=== PATIENT | female | born 2000 | race Two or more races ===

== ENCOUNTER 2020-09-05 11:30 | Outpatient (REF) | payer OTHER, SELFPAY ==
[2020-09-05 12:07] LABS: COVID-19 Test Negative (Negative)
== END 2020-09-05 11:31 | disposition home or self-care (01) ==
LOC: HO.LAB 11:30
PROVIDERS: Visit Provider Physician Assistant Medical
DX: Z20.822 Contact with and (suspected) exposure to COVID-19 (principal)
CPT/HCPCS: 36415; 87635

== ENCOUNTER 2020-09-18 14:57 | Outpatient (REF) | payer MEDICAID, SELFPAY | END 2020-09-18 14:58 | disposition home or self-care (01) | LOC: HO.LAB 14:57 | PROVIDERS: Visit Provider Nurse Practitioner Family | DX: R05 Cough (principal); Z20.822 Contact with and (suspected) exposure to COVID-19 | CPT/HCPCS: U0003; U0005 ==

== ENCOUNTER 2021-10-11 21:49 | Emergency (ER) | payer OTHER, MEDICAID, SELFPAY ==
[2021-10-11 22:09] VITALS: BP 124/71; PULSE 82; RESP 16; TEMP 36.6; O2SAT 96
[2021-10-11 22:26] VITALS: BP 124/71; PULSE 82; RESP 16; TEMP 36.6; O2SAT 96; BMI 31.3
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
[2021-10-12 01:16] VITALS: BP 130/67; PULSE 73; RESP 18; TEMP 36.3; O2SAT 100
[2021-10-12] MEDS: Ibuprofen 600 MG TABLET PO (01:23)
== END 2021-10-12 01:35 | disposition home or self-care (01) ==
PROVIDERS: Emergency Provider Emergency Medicine
DX: S13.4XXA Sprain of ligaments of cervical spine, initial encounter (principal); V43.62XA Car passenger injured in collision with other type car in traffic accident, initial encounter; Y93.89 Activity, other specified; Y92.414 Local residential or business street as the place of occurrence of the external cause; Y99.9 Unspecified external cause status
CPT/HCPCS: 99283

== ENCOUNTER 2022-04-02 12:12 | Outpatient (REF) | payer OTHER, MEDICAID, SELFPAY ==
[2022-04-04 16:02] LABS: TS Negative Control Passed; TS Panel A 0; TS Panel B 1; TS Positive Control Passed; TSpotTB Negative (Negative)
== END 2022-04-02 12:13 | disposition home or self-care (01) ==
LOC: HO.LAB 12:12
PROVIDERS: PCP Family Medicine; Visit Provider Family Medicine
DX: Z11.1 Encounter for screening for respiratory tuberculosis (principal)
CPT/HCPCS: 36415; 86481

== ENCOUNTER 2024-06-21 14:47 | Outpatient (REF) | payer OTHER, MEDICAID, SELFPAY ==
--- OUTSIDE RECORDS SUMMARY | 2024-06-21 15:54 | XMS_ITS ---
Author Organization [facility] Address [address] [id number] Care Team Providers Care Dairy Management Specialist Name Role Phone Preston Engel Unavailable [phone] Allergies No Known Allergies REASON FOR VISIT pill check Medications Medication SIG (Take, Route, Frequency, Duration) Notes Start Date End Date Status Macrobid 100 MG 1 capsule Orally Twice a day for 7 days Rx dispensed # 14 caps in -house 03/20/2021 Not-Taking metroNIDAZOLE 500 MG 1 tablet Orally Twice a day, every 12 hours for 7 days Rx from [facility] to start on 03/04/2023 03/04/2023 Not-Taking Diflucan 150 MG 1 tablet Orally 1 tab po stat ,rept x 3 days for 3 days Rx from [facility] to start on 03/04/2023 03/04/2023 Not-Taking Junel FE 03/06 1-20 MG-MCG 1 tablet Orally Once a day for 365 days please fill 1 year supply per [place] access act thank you! Active Social History Sex Assigned At : Social History Observation Description Sex Assigned At Female Vital Signs Blood pressure systolic 105 mm Hg 08/24/19 24 Blood pressure diastolic 70 mm Hg 024 Height 61 in 08/24/2023 Weight 186 lbs 08/24/2023 BMI 35.14 kg/m2 08/24/2023 Encounters Encounter Location Date Provider Diagnosis [facility] [address] [place], [place] [id number] 08/24/2023 Preston Engel Encounter for surveillance of contraceptives, unspecified Z30.40 Assessments Encounter Date Diagnosis (ICD Code) Assessment Notes Treatment Notes Treatment Clinical Notes Section Notes 08/24/2023 Encounter for surveillance of contraceptives, unspecified (ICD-10 - Z30.40) Reviewed med education and what to do with missed pills Date of next annual: has been doing at [facility] previously, plans to schedule next annual at [facility] 08/24/2023 Other Plan Of Treatment Medication Medication Name Sig Start Date Stop Date Notes 03/06 1-20 MG-MCG 1 tablet Orally Once a day for 365 days please fill 1 year supply per [place] access act thank you! Treatment Notes Assessment Notes Encounter for surveillance o f contraceptives, unspecified Reviewed med education and what to do with missed pills Date of next annual: has been doing at [facility] previously, plans to schedule next annual at [facility] Next Appt Details Follow Up: , Reason: for janell ua Progress Notes * Tish ALFARODOB: [birth year] (23 yo F)Acc No.[id number]:08/24/2023 Progress Notes Patient:?Tish ALFARO Provider:?Preston Engel CNM, FNP :2000???Age:23 Y???Sex:Female D ate:08/24/2023 Address:[address] [place] [address] Shubham López, [facility] Subjective: * Chief Complaints: * ???Pill check * HPI: ???Visit Narrative:?Reason for the visit:?OCP check.?Current form of control:?.?LMP:?some spotting on 08/14/2023.?Last date of UPI:?08/20/2023.?Other Notes for the Clinician:?Client presents for OCP check. Client notes they missed last 4 days of last pack (inactive pills, lost at dance constitution party), 08/08-08/11 and started again on day 1 of new pack 08/13/2023. otherwise always 100% adherance, no side effects, happy with method, would like to review what to do with missed pills.? * ROS:?General/Constitutional:?Denies?Headache.?Denies?Weight gain.?Denies?Weight loss.?Ophthalmologic:?Visual changes?denies.?Denies?Blurred vision.?Respiratory:?Denies?Breathing problems.?Denies?Chest pain.?Cardiovascular:?Denies?Fluid accumulation in the legs.?Gastrointestinal:?Denies?Abdominal pain.?Denies?Nausea.?Denies?Vomiting.?Vaginal/Breast/ Control FU:?Denies?Irregular menses.?Denies?Missed period(s).?Denies?Vaginal bleeding between periods.?Denies?Vaginal discharge/itching.?Musculoskeletal:?arm pain?denies.?Peripheral Vascular:?Denies?Painful extremities.?Psychiatric:?Denies?Depressed mood.? * Medical History:? * Procurement Internship History:? control:?oral contraceptive pill.?Last menstrual period:?08/10/2023.?Last pap smear date:?approx 2 years ago at [facility], NIL; 09/2019,at another provider's ,client reports as NIL.?Menarche: ?Age of menarche?8 ???Periods:?every 28 days , scant blood loss,on oc Rx.?Sexual activity:?currently sexually active.?Sexually Transmitted Diseases (STDs):?Gonorrhea,tx'd and negative testing since ,rept aptima sent on 07/18/2018 and 01/04/2019 at ,both negative results.?Unprotected sex in the past 10 days?:?no.? * OB History:?Total pregnancies:?2.?(s):?1.?Miscarriage(s):?1.? * Surgical History:?Denies Pas t Surgical History * Hospitalization/Major Diagno stic Procedure:?Denies Past Hospitalization * Family History:? Grandfather maternal- liver cancer. * Social History:?Food Access:?Food Access?The Client's current access to food is?Secure Food Access ???Housing:?Housing?The client's current living situation is:?stable housing ???Reproductive Life Plan:?Reproductive Life Plan?Do you want to have children??Yes, I want to have children ?How long would you like to wait until you/your partner becomes ??1 - 5 years ?How sure are you that you will be able to use your control method without any problems??Very sure ???Sexual History:?Sexual History?Sexual History Reviewed:?Partners, Practices, Protection/Past STIs, Prevention of ?Currently sexually active??Yes x 6 years, unsure ?Sexually active with:?Men ?Number of male partners?1 ?Your sexual activities include:?oral intercourse, vaginal intercourse ?Reviewed types of EC??Yes ?Have you/your partner(s) ever used EC??Yes ?Offered client EC??No ?Do you use condoms??No ?Date of last unprotected intercourse:?08/20/2023 ?Number of partners in past 3 months:?1 ?Number of partners in past year:?1 ?What is the client's primary method to prevent at the end of their visit??Oral - Combined Hormone Pill ?Does your partner(s) currently have any STIs??No ???HIV Risk Assessment:?Additional Questions?Is an HIV Risk Assessment being conducted??No ???PrEP for HIV:?PrEP for HIV?Is the client interested in beginning/continuing PrEP for HIV??No ???Relationships:?Relationships?Has the client experienced any of the following:?Client has never experienced harmful relationships ???Human Trafficking:?Human Trafficking?Experienced:?No ???Tobacco Use:?Tobacco Use?Do you/have you used tobacco??No ?Tobacco Smoking Status?Never smoker ???Drugs/Alcohol:?Drug/Alcohol Use?Do you or have you used drugs??No ?Do you or have you used alcohol??No ???Counseling Provided:?Counseling Provided?The client was counseled on the following topics at this visit:? Control ?Please indicate the length of time, in minutes, that counseling was provided.?7 ?Counseling Was Provided By:?peter * Medications:?TakingJunel 03/06 1-20 MG-MCG Tablet TAKE 1 TABLET BY MOUTH EVERY DAY FOR 84 DAYS Taking Junel FE 03/06 1-20 MG-MCG Tablet TAKE 1 TABLET BY MOUTH EVERY DAY FOR 84 DAYS Not-Taking/PRNmetroNIDAZOLE 500 MG Tablet 1 tablet Orally Twice a day, every 12 hours , Notes to Pharmacist: Rx from to start on 03/04/2023iflucan 150 MG Tablet 1 tablet Orally 1 tab po stat ,rept x 3 days , Notes to Pharmacist: Rx from to start on 03/04/2023Macrobid 100 MG Capsule 1 capsule Orally Twice a day , Notes to Pharmacist: Rx dispensed # 14 caps in -houseMedication List reviewed and reconciled with the patientNot-Taking/PRN metroNIDAZOLE 500 MG Tablet 1 tablet Orally Twice a day, every 12 hours , Notes to Pharmacist: Rx from [facility] to start on 03/04/2023Not-Taking/PRN Diflucan 150 MG Tablet 1 tablet Orally 1 tab po stat ,rept x 3 days , Notes to Pharmacist: Rx from [facility] to start on 03/04/2023Not-Taking/PRN Macrobid 100 MG Capsule 1 capsule Orally Twice a day , Notes to Pharmacist: Rx dispensed # 14 caps in -houseMedication List reviewed and reconciled with the patient * Allergies:?N.K.D.A.no[Allerg ies Verified] Objective: * Vitals:?BP:105/70mm Hg, Ht: 61 in, Wt:186lbs, BMI:35.14Index, Ht-cm: 154.94, Wt- k.37. * Examination: ???General Examination: ?GENERAL APPEARANCE:?in no acute distress, well developed, well nourished.?NEUROLOGIC:?alert and oriented.? Assessment: * Assessment: 1.?Encounter for surveillanc e of contraceptives, unspecified - Z30.40 (Primary)? Plan: * Treatment: * Procedure Codes:? * Follow Up:?Reason: for annua l * Billing Information: * Visit Code:? 44443 Existing - Low Complexity (IN USE). * Procedure Codes:? * Sign off status: Completed true * Provider:?Preston Engel CNM, THEATRICAL SCENIC DESIGNER Date:?0 08/24/2023 Generated for Tiago shipley/Lucy/Teresa on:?06/21/2024 03:54 PM EDT History and Physical Notes * HPI (History of Present Illness) Category Sub-Category Detail Notes Category Not es Visit Narrative Reason for the visit: OCP check Current form of control: Other Notes for the Clinician: Client pr esents for OCP check. Client notes they missed last 4 days of last pack (inactive pills, lost at dance [employer] party), 08/08-08/11 and started again on day 1 of new pack 08/13/2023. otherwise always 100% adherance, no side effects, happy with method, would like to review what to do with missed pills LMP: some spotting on 07/17 Last date of UPI: 08/20/2023 Examination Category Sub-Category Detail Notes Category Not es General Examination GENERAL APPEARANCE: in no ac monique distress, well developed, well nourished NEUROLOGIC: alert and oriented
--- OUTSIDE RECORDS SUMMARY | 2024-06-21 15:54 | XMS_ITS | Encounter Summary ---
Author Organization [facility] Address [address] [place] [address] Phone Care Team Providers Care Trailer Park Manager Name Role Phone Unavailable Primary Care Provider Unavailabl e Encounter Details Date Type Department Care Team (Late st Contact Info) Description 10/01/2016 Conversion Encounter [facility] - [address] [address] Social History Tobacco Use Types Packs/Day Years Used Date Smoking Tobacco: Never Comments:Never smoker Comments Unknown Sex and Gender Information Value Date Recorded Sex Assigned at Not on file Legal Sex Female 5:12 PM EDT Gender Identity Not on file Sexual Orientation Not on file documented as of this encounter Plan of Treatment Not on file documented as of this encounter Visit Diagnoses Not on filedocumented in this encounter
--- OUTSIDE RECORDS SUMMARY | 2024-06-21 15:54 | XMS_ITS | Encounter Summary ---
Author Organization [facility] Address [address] [place] [id number] Phone Care Team Providers Care Risk Management Internship Name Role Phone Unavailable Primary Care Provider Unavailabl e Encounter Details Date Type Department Care Team (Late st Contact Info) Description 05/10/2015 Documentation [facility] Family Medicine [facility] [place] [address] Family Medicine, Physician [address] [place], [place] [id number] Social History Tobacco Use Types Packs/Day Years Used Date Smoking Tobacco: Never Assessed Comments Unknown Sex and Gender Information Value Date Recorded Sex Assigned at Not on file Legal Sex Female 5:12 PM EDT Gender Identity Not on file Sexual Orientation Not on file documented as of this encounter Plan of Treatment Not on file documented as of this encounter Visit Diagnoses Not on filedocumented in this encounter
--- OUTSIDE RECORDS SUMMARY | 2024-06-21 15:54 | XMS_ITS ---
Author Organization [facility] Address [address] [place] [id number] Care Team Providers Care Flaring Machine Operator Name Role Phone MAE LEONARDO Unavailable [phone] Allergies No Known Allergies Results Component Value Reference Range Notes Wet [facility] Reviewed date:05/22/2024 05:31:19 PM Interpretation:BV Performing Lab: Notes/Report: BV Clue Cells pos WBC few Hyphae neg Trichomonas none pH 5.5 IRMA Prep pos whiff HBsAg Screen-[id number] Reviewed date:05/23/2024 12:23:09 PM Interpretation:Negative Performing Lab:Chris Brooks, [address], [address], [place], Phone - [phone], Director - [facility] Notes/Report: Clinical Information:SRC: VAGINAL HBsAg Screen Negative Negative Hepatitis B Surf Ab Quant-[id number] Reviewed date:05/23/2024 12:23:27 PM Interpretation:Immune Performing Lab:[address], [address], [place], Phone - [phone], Director - [facility] Notes/Report: Clinical Information:SRC: VAGINAL Hepatitis B Surf Ab Quant 21.0 Immunity>10 mIU /mL Status of Immunity Anti-HBs Level Inconsistent with Immunity 0.0 - 10.0 Consistent with Immunity >10.0 T pallidum Screening [place] -[id number] Reviewed date:05/23/2024 12:22:57 PM Interpretation:Negative Performing Lab:[facility] [place], [address], [address], [place], Phone - [phone], Director - [facility] Notes/Report: Clinical Information:SRC: VAGINAL T pallidum Antibodies Non Reactive Non Reactive HIV Ab/p24 Ag with Reflex-[id number] Reviewed date:05/23/2024 12:23:03 PM Interpretation:Negative Performing Lab:[facility] [place], [address], [address], [place], Phone - [phone], Director - [facility] Notes/Report: Clinical Information:SRC: VAGINAL HIV Ab/p24 Ag Screen Non Reactive Non Reactive HIV-1/HIV-2 antibodies and HIV-1 p24 antigen were NOT detected. There is no laboratory evidence of HIV infection. HIV Negative HCV Antibody RFX to Quant PC [id number] Reviewed date:05/23/2024 12:23:15 PM Interpretation:Negative Performing Lab:[facility] [place], [address], [address], [place], Phone - [phone], Director - [facility] Notes/Report: Clinical Information:SRC: VAGINAL Clinical Information:SRC: VAGINAL HCV Ab Non Reactive Non Reactive Interpretation: Not infected with HCV unless early or acute infection is suspected (which may be delayed in an immunocompromised individual), or other evidence exists to indicate HCV infection. Ct, Ng, Trich vag by [id number]-[id number] Reviewed date:05/23/2024 06:20:54 PM Interpretation:Negative Performing Lab:[facility] [place], [address], [address], [place], Phone - [phone], Director - [facility] Notes/Report: Clinical Information:SRC: VAGINAL Chlamydia by SCOT Negative Negative Gonococcus by SCOT Negative Negative Trich vag by SCOT Negative Negative REASON FOR VISIT Infection Screening Medications Medication SIG (Take, Route, Frequency, Duration) Notes Start Date End Date Status metroNIDAZOLE 500 MG 1 tablet Orally Twice a day, every 12 hours for 7 days 05/22/2024 Active Aftera 1.5 MG as directed Orally one for 1 days 05/22/2024 Active 03/06 1-20 MG-MCG 1 tablet Orally Once a day for 365 days please fill 1 year supply per [place] access act thank you! Not-Taking Social History Sex Assigned At : Social History Observation Description Sex Assigned At Female Vital Signs Blood pressure systolic 100 mm Hg 04/07/20 25 Blood pressure diastolic 65 mm Hg 025 Height 61 in 05/22/2024 Weight 173.7 lbs 05/22/2024 BMI 32.82 kg/m2 05/22/2024 Encounters Encounter Location Date Provider Diagnosis [facility] [address] [place] [address] [address] [place], [place] [id number] 05/22/2024 MAE GABAI Encounter for screen ing for infections with a predominantly sexual mode of transmission Z11.3 ; Encounter for other general counseling and advice on contraception Z30.09 ; Acute vaginitis N76.0 ; Encounter for screening for other infectious and parasitic diseases Z11.8 ; Encounter for screening for human immunodeficiency virus [HIV] Z11.4 and Encounter for screening for other viral diseases Z11.59 Assessments Encounter Date Diagnosis (ICD Code) Assessment Notes Treatment Notes Treatment Clinical Notes Section Notes 05/22/2024 Encounter for screening for infections with a predominantly sexual mode of transmission (ICD-10 - Z11.3) Reviewed routine screening, safe sex and consistent barrier protection. Aware of window period for testing and testing options. Discussed symptoms that would warrant further evaluation and follow-up care. Need 2 out of 3 Sections from A-C Section A) Problems (only need one from below) Two or more self-limited or minor programs Section B) Data (at least one of the following categories in this section) Category 1: (Choose 2 of the following): Order unique tests Review test results (each unique test counts as one) Category 2: Assessment requiring an independent historian Section C) Risk Document low risk of morbidity/mor tality 05/22/2024 Encounter for other general counseling and advice on contraception (ICD-10 - Z30.09) Reviewed control options available. Reviewed risk, benefits and side effects of each method. Answered questions and concerns, and used shared decision-making to choose method. Clt agreeable to EC rx for future use. Declines other method at this time Need 2 out of 3 Sections from A-C Section A) Problems (only need one from below) Two or more self-limited or minor programs Section B) Data (at least one of the following categories in this section) Category 1: (Choose 2 of the following): Order unique tests Review test results (each unique test counts as one) Category 2: Assessment requiring an independent historian Section C) Risk Document low risk of morbidity/mor tality 05/22/2024 Acute vaginitis (ICD-10 - N76.0) Reviewed wet mount findings. Discussed bacterial vaginosis diagnosis, treatment and prevention. BV is a clinical condition characterized by a shift in vaginal microbiota away from Lactobacillus species towards more diverse anaerobe bacterial species. Encouraged condom use during treatment regimen. Info given on Boric Acid vaginal suppositories, aware that toxic if taken PO, samples dispensed. RTC if symptoms persist or worsen Reviewed study showing a possible sexual transmission aspect of BV. The study found that treating AMAB partners (partner with a penis) decreased reoccurrence rate from 63% to 35% in the first 3 months after treatment. This is a new study, and we are still learning all the implications of its findings. There is still more to learn regarding BV and proper treatment to avoid recurrent issues. Partner treatment discussed today. Clt declines at this time Need 2 out of 3 Sections from A-C Section A) Problems (only need one from below) Two or more self-limited or minor programs Section B) Data (at least one of the following categories in this section) Category 1: (Choose 2 of the following): Order unique tests Review test results (each unique test counts as one) Category 2: Assessment requiring an independent historian Section C) Risk Document low risk of morbidity/mor tality 05/22/2024 Encounter for screening for other infectious and parasitic diseases (ICD-10 - Z11.8) Need 2 out of 3 Sections from A-C Section A) Problems (only need one from below) Two or more self-limited or minor programs Section B) Data (at least one of the following categories in this section) Category 1: (Choose 2 of the following): Order unique tests Review test results (each unique test counts as one) Category 2: Assessment requiring an independent historian Section C) Risk Document low risk of morbidity/mor tality 05/22/2024 Encounter for screening for human immunodeficiency virus [HIV] (ICD-10 - Z11.4) Need 2 out of 3 Sections from A-C Section A) Problems (only need one from below) Two or more self-limited or minor programs Section B) Data (at least one of the following categories in this section) Category 1: (Choose 2 of the following): Order unique tests Review test results (each unique test counts as one) Category 2: Assessment requiring an independent historian Section C) Risk Document low risk of morbidity/mor tality 05/22/2024 Encounter for screening for other viral diseases (ICD-10 - Z11.59) Need 2 out of 3 Sections from A-C Section A) Problems (only need one from below) Two or more self-limited or minor programs Section B) Data (at least one of the following categories in this section) Category 1: (Choose 2 of the following): Order unique tests Review test results (each unique test counts as one) Category 2: Assessment requiring an independent historian Section C) Risk Document low risk of morbidity/mor tality Plan Of Treatment Medication Medication Name Sig Start Date Stop Date Notes metroNIDAZOLE 500 MG 1 tablet Orally Twi ce a day, every 12 hours for 7 days 05/22/2024 Aftera 1.5 MG as directed Orally one for 1 days 05/22/2024 Treatment Notes Assessment Notes Encounter for screening for infections with a predominantly sexual mode of transmission Reviewed routine screening, safe sex and consistent barrier protection. Aware of window period for testing and testing options. Discussed symptoms that would warrant further evaluation and follow-up care. Encounter for other general counseling and advice on contraception Reviewed control options available . Reviewed risk, benefits and side effects of each method. Answered questions and concerns, and used shared decision-making to choose method. Clt agreeable to EC rx for future use. Declines other method at this time Acute vaginitis Reviewed wet mount findings. Discussed bacterial vaginosis diagnosis, treatment and prevention. BV is a clinical condition characterized by a shift in vaginal microbiota away from Lactobacillus species towards more diverse anaerobe bacterial species. Encouraged condom use during treatment regimen. Info given on Boric Acid vaginal suppositories, aware that toxic if taken PO, samples dispensed. RTC if symptoms persist or worsen Reviewed study showing a possible sexual transmission aspect of BV. The study found that treating AMAB partners (partner with a penis) decreased reoccurrence rate from 63% to 35% in the first 3 months after treatment. This is a new study, and we are still learning all the implications of its findings. There is still more to learn regarding BV and proper treatment to avoid recurrent issues. Partner treatment discussed today. Clt declines at this time Progress Notes * Golden ALFARO: 998 (24 yo F)Acc No.[id number]:05/22/2024 Progress Notes Patient:?Tish ALFARO Provider:?Mae Leonardo NP :2000???Age:24 Y???Sex:Female D ate:05/22/2024 Address:[address] [place] [address] [place], [id number] Subjective: * Chief Complaints: * ???Infection Screening * HPI: ???Visit Narrative:? Clt presenting for routine screening and infection check. Sexually active with new AMAB partner since last tested, c/o vaginal symptoms. Has hx of BV and feels like symptoms are similar. Recently discontinued DOM, declines control counseling or start at this time. ?Reason for the visit:?Infection screening.?Current form of control:?None.?Presenting Symptoms:?Yellow thick discharge, odor.?LMP:?04/27/24.?Last date of UPI:?2 weeks ago?.? Clt here for infection screening, is having some sxs. No meds. * ROS:?see HPI. * Medical History:? * Cable Tester History:? control:?oral contraceptive pill.?Last menstrual period:?end of September 2023.?Last pap smear date:?11[facility]/20[facility] ,?2020 ,NIL.?Menarche: ?Age of menarche?8 ???Periods:?every 28 days , [...] Protection/Past STIs, Prevention of ?Currently sexually active??Yes ?Sexually active with:?Men ?Number of male partners?1 ?Your sexual activities include:?oral intercourse, vaginal intercourse ?Reviewed types of EC??Yes ?Have you/your partner(s) ever used EC??Yes ?Offered client EC??No ?Do you use condoms??No ?Date of last unprotected intercourse:?2 weeks ago ?Number of partners in past 3 months:?1 ?Number of partners in past year:?1 ?What is the client's primary method to prevent at the end of their visit??None/No Method (Specify Reason) ?Does your partner(s) currently have any STIs??No ???Relationships:?Relationships?Has the client experienced any of the following:?Client has never experienced harmful relationships ???Human Trafficking:?Human Trafficking?Experienced:?No ???Tobacco Use:?Tobacco Use?Do you/have you used tobacco??No ???Drugs/Alcohol:?DO NOT USE Drug/Alcohol Use?Do you or have you used drugs or alcohol??No, neither drugs nor alcohol ???Counseling Provided:?Counseling Provided?Please indicate the length of time, in minutes, that counseling was provided.?6 ?Counseling Was Provided By:?ricardo * Medications:?Not-Taking/PRN03/06 1-20 MG-MCG Tablet 1 tablet Orally Once a day , Notes to Pharmacist: please fill 1 year supply per [place] access act thank you!Not-Taking/PRN 03/06 1-20 MG-MCG Tablet 1 tablet Orally Once a day , Notes to Pharmacist: please fill 1 year supply per [place] access act thank you!DiscontinuedmetroNIDAZOLE 500 MG Tablet 1 tablet Orally Twice [...] -houseMedication List reviewed and reconciled with the patientDiscontinued metroNIDAZOLE 500 MG Tablet 1 tablet Orally Twice a day, every 12 hours , Notes to Pharmacist: Rx from to start on 03/04/2023iscontinued Diflucan 150 MG Tablet 1 tablet Orally 1 tab po stat ,rept x 3 days , Notes to Pharmacist: Rx from [facility] to start on 4Discontinued Macrobid 100 MG Capsule 1 capsule Orally Twice a day , Notes to Pharmacist: Rx dispensed # 14 caps in -houseMedication List reviewed and reconciled with the patient * Allergies:?N.K.D.A.no[Allerg ies Verified] Objective: * Vitals:?BP:100/65mm Hg, Ht: 61 in, Wt:173.7lbs, BMI:32.82Index, Ht-cm: 154.94, Wt-k.79. * Examination: ???General Examination: ?GENERAL APPEARANCE:?pleasant, in no acute distress.?NEUROLOGIC:? alert and oriented.? Assessment: * Assessment: 1.?Encounter for screening f or infections with a predominantly sexual mode of transmission - Z11.3 (Primary)???2.?Encounter for other general counseling and advice on contraception - Z30.09???3.?Acute vaginitis - N76.0???4.?Encounter for screening for other infectious and parasitic diseases - Z11.8???5.?Encounter for screening for human immunodeficiency virus [HIV] - Z11.4???6.?Encounter for screening for other viral diseases - Z11.59??? Need 2 out of 3 Sections fro m A-C Section A) Problems (only need one from below) Two or more self-limited or minor programs Section B) Data (at least one of the following categories in this section) Category 1: (Choose 2 of the following): Order unique tests Review test results (each unique test counts as one) Category 2: Assessment requiring an independent historian Section C) Risk Document low risk of morbidity/mortality Plan: * Treatment: ? Value Reference Range ?Clue Cells pos * ?WBC few * ?Hyphae neg * ?Trichomonas none * ?pH 5.5 * ?IRMA Prep pos whiff * MAE LEONARDO 05/22/2024 05: 31:06 PM EDT > Notes: Reviewed routine screening, safe sex and consistent barrier protection. Aware of window period for testing and testing options. Discussed symptoms that would warrant further evaluation and follow-up care. ??2.?Encounter for other general counseling and advice on contraception? Start Aftera Tablet, 1.5 MG, as directed, Orally, one, 1 days, 1, Refills 11.?? Notes: Reviewed control options available. Reviewed risk, benefits and side effects of each method. Answered questions and concerns, and used shared decision-making to choose method. Clt agreeable to EC rx for future use. Declines other method at this time??3.?Acute vaginitis? Start metroNIDAZOLE Tablet, 500 MG, 1 tablet, Orally, Twice a day, every 12 hours, 7 days, 14 Tablet, Refills 0.?? Notes: Reviewed wet mount findings. Discussed bacterial vaginosis diagnosis, treatment and prevention. BV is a clinical condition characterized by a shift in vaginal microbiota away from Lactobacillus species towards more diverse anaerobe bacterial species. Encouraged condom use during treatment regimen. Info given on Boric Acid vaginal suppositories, aware that toxic if taken PO, samples dispensed. RTC if symptoms persist or worsen Reviewed study showing a possible sexual transmission aspect of BV. The study found that treating AMAB partners (partner with a penis) decreased reoccurrence rate from 63% to 35% in the first 3 months after treatment. This is a new study, and we are still learning all the implications of its findings. There is still more to learn regarding BV and proper treatment to avoid recurrent issues. Partner treatment discussed today. Clt declines at this time ??4.?Encounter for screening for other infectious and parasitic diseases?LAB: Ct, Ng, Trich vag by [id number] (Collection Date & Time - 05/22/2024 05:33 PM)5.?Encounter for screening for human immunodeficiency virus [HIV]?LAB: HIV Ab/p24 Ag with Reflex-[id number] (Collection Date & Time - 05/22/2024 05:33 PM)6.?Encounter for screening for other viral diseases?LAB: HBsAg Screen-[id number] (Collection Date & Time - 05/22/2024 05:33 PM) ?LAB: Hepatitis B Surf Ab Quant-[id number] (Collection Date & Time - 05/22/2024 05:33 PM) ?LAB: HCV Antibody RFX to Quant PCR-[id number] (Collection Date & Time - 05/22/2024 05:33 PM) * Procedure Codes:?62506 Wet M ount * Billing Information: * Visit Code:? 36445 Existing - Low Complexity (IN USE). * Procedure Codes:? 12931 Wet Mount. * Sign off status: Completed true * Provider:?Mae Leonardo NP Date:? 025 Generated for Tiago shipley/Lucy/eTransmitting on:?06/21/2024 03:54 PM EDT History and Physical Notes * HPI (History of Present Illness) Category Sub-Category Detail Notes Category Not es Visit Narrative Reason for the visit: Infection screening Clt here for infection screening, is having some sxs. No meds. Current form of control: None Presenting Symptoms: Yellow thick discha rge, odor LMP: 04/27/24 Last date of UPI: 2 weeks ago Examination Category Sub-Category Detail Notes Category Not es General Examination GENERAL APPEARANCE: pleasant, in n o acute distress NEUROLOGIC: alert and oriented
--- OUTSIDE RECORDS SUMMARY | 2024-06-21 15:54 | XMS_ITS | Clinical Summary ---
Author Organization [facility] it[facility] Address [address] [place] [address] Care Team Providers Care Storage Management Architect Name Role Phone Ivana Youngblood MD Primary Care Provider [phone] Surgical History Surgery Date Site/Laterality Comments OTHER SURGICAL HISTORY 06/15/2018 PROCEDURE: HISTORICAL D&C; COMMENT: missed Medical History Medical History Date Comments PCOS (polycystic ovarian syndrome) 10/24/2018 DX:PCOS (polycystic ovarian syndrome) Family History Medical History Relation Name Comments Breast cancer Neg Hx Colon cancer Neg Hx Ovarian cancer Neg Hx Relation Name Status Comments Father Alive Mother Alive Social History Tobacco Use Types Packs/Day Years Used Date Smoking Tobacco: Never Smokeless Tobacco: Never Alcohol Use Standard Drinks/Week Comments No 0 (1 standard drink = 0.6 oz pur e alcohol) Comments Unknown Sex and Gender Information Value Date Recorded Sex Assigned at Not on file Legal Sex Female 4:31 PM EST Gender Identity Not on file Sexual Orientation Not on file Obstetrics History Plan of Treatment Health Maintenance Due Date Last Done Comments DTaP,Tdap,and Td Vaccines (1 - Tdap) 2017 Hepatitis B Vaccines (1 of 3 - 19+ 3-dose series) 2017 HPV Vaccines (2 - 3-dose series) 12/12/2019 11/14/19 20 Depression Screening 01/24/2022 HIV Screening 01/24/2022 Hepatitis C Screening 01/24/2022 Social Influencers of Health Screening 01/24/2022 Cervical Cancer Screening: P ap Smear 11/13/2022 11/14/2019 COVID-19 Vaccine ( - 2023-2 5 season) 2023 Influenza Vaccine (Season Ended) 2024 HIB Vaccines Aged Out No longer eligi ble based on patient's age to complete this topic Hepatitis A Vaccines Aged Out No long er eligible based on patient's age to complete this topic IPV Vaccines Aged Out No longer eligi ble based on patient's age to complete this topic MMR Vaccines Aged Out No longer eligi ble based on patient's age to complete this topic Meningococcal ACWY Vaccine Aged Out N o longer eligible based on patient's age to complete this topic Meningococcal B Vaccine Aged Out No l onger eligible based on patient's age to complete this topic Pneumococcal Vaccine: Pediat rics (0 to 5 Years) and At-Risk Patients (6 to 64 Years) Aged Out No longer eligi ble based on patient's age to complete this topic RSV Immunization Patients Un [place] 20 months Aged Out No longer eligible b ased on patient's age to complete this topic Varicella Vaccines Aged Out No longer eligible based on patient's age to complete this topic Procedures Procedure Name Priority Date/Time Associated Diagnosis Comments PAP SMEAR Routine 11/14/2019 from Last 3 Months or Most Recently Relevant to Health Maintenance Results * Pap smear (11/14/2019) 11/14/2019 Narrative HISTORICAL TESTING LAB RESULTING AGENCY - 11/16/2019 3:05 PM EDT [id number] THINPREP PAP, IMAGED: NEGATIVE FOR SQUAMOUS INTRAEPITHELIAL LESION AND MALIGNANCY . NAOMI BERNAL(ASCP) (CASE ELECTRONICALLY SIGNED 11 16 2019) ADEQUACY: SATISFACTORY ENDOCERVICAL/TRANSFORMATION ZONE COMPONENT PRESENT. SOURCE: THINPREP PAP HPV IF ASCUS, CERVICAL, IMAGED CLINICAL INFORMATION: HPV IF DIAGNOSIS OF ASCUS. [Z12.4, Z01.419] us David Mae DO LAB CYTOLOGY ORDERABLES Final Result HISTORICAL TESTING LAB RESULTING AGENCY from Last 3 Months or Most Recently Relevant to Health Maintenance Care Teams Storage Management Architect Relationship Specialty Start Date End Date Ivana Youngblood MD [address] [facility] [place], [place] [address] PCP - General Pediatrics 07/06/18
--- OUTSIDE RECORDS SUMMARY | 2024-06-21 15:54 | XMS_ITS | Encounter Summary ---
Author Organization [employer] Address [address] [place] [address] Care Team Providers Care Architect In Training Name Role Phone Juanita Albarran MD Primary Care Provider [phone] Reason for Visit * Reason Onset Date Comments Lab Orders 03/20/2022 Encounter Details Date Type Department Care Team ([facility] st Contact Info) Description 03/20/2022 Telephone [facility] [address] [place] [address] Juanita Albarran MD [address] [place] [address] Lab Orders Social History Tobacco Use Types Packs/Day Years Used Date Smoking Tobacco: Never Assessed Comments Unknown Sex and Gender Information Value Date Recorded Sex Assigned at Female 12/15/2021 10:39 AM EDT Legal Sex Female 10:39 AM EDT Gender Identity Female 12/15/2021 10:39 AM EDT Sexual Orientation Straight 12/15/2021 10 :39 AM EDT documented as of this encounter Miscellaneous Notes * Telephone Encounter - Mainor Dupont - 03/20/2022 4:41 PM EST Tc from pt returning a call to see status on messages below and pt is getting a screening. Please contact pt at [phone] * Telephone Encounter - Juanita Albarran MD - 03/20/2022 3:52 PM EST So I am going to assume patient is looking for a TB screening which we can do blood test, if she wants to get the TB vaccine then she needs to go to a travel clinic. * Telephone Encounter - Ayla Sullivan RN - 03/20/2022 2:02 PM EST Please review request below and advise. Thank you. * Telephone Encounter - Surinder Uribe - 03/20/2022 11:41 AM EST Tc from pt requesting to have a [place] [facility] Please contact pt at [phone] documented in this encounter Plan of Treatment Scheduled Orders Name Type Priority Associated Diagnoses Orde r Schedule QuantiFERON??-TB Gold Plus, 1 Tube Lab Routine Tuberculosis screening Expected: 03/20/2022 (Approximate), Expires: 03/20/2023 documented as of this encounter Visit Diagnoses Diagnosis Tuberculosis screening- Primary Screening examination for pulmonary tuberculosis documented in this encounter Care Teams Architect In Training Relationship Specialty Start Date End Date Juanita Albarran MD [address] [place] [address] PCP - General Family Medicine 10/16/20 documented as of this encounter
--- OUTSIDE RECORDS SUMMARY | 2024-06-21 15:54 | XMS_ITS | Encounter Summary ---
Author Organization [facility] Address [address] [place] [phone] Phone Care Team Providers Care Electronic Security Technician Name Role Phone Unavailable Primary Care Provider Unavailabl e Encounter Details Date Type Department Care Team (Late st Contact Info) Description 06/02/2013 Documentation [facility] Family Medicine [facility] [place] [address] Family Medicine, Physician [address] [place], [place] [id number] Social History Tobacco Use Types Packs/Day Years [...]
--- OUTSIDE RECORDS SUMMARY | 2024-06-21 15:54 | XMS_ITS | Clinical Summary ---
Author Organization [facility] Address [address] [place] [address] Phone Care Team Providers Care Mirror Silverer Name Role Phone Unavailable Primary Care Provider Unavailabl e Allergies No known active allergies Medications No known medications Immunizations Immunization Administration Dates Next Due DTaP 5 02/16/2002, 0,1998,06/14,1998 HPV, Quadrivalent 07/21/2011,05/16/2010,03/14/19 11 Hep A, ped/adol 07/30/2016,04/16/2015 Hep B, ped/adol 1998,1998,1998 Hib (PRP-T) 04/17/1999, 9,1998,04/03 IPV 02/16/2002, 0,1998,04/03 Influenza Split 03/14/2010 Influenza, injectable, quadrivalent 04/16/2015 Influenza, injectable, quadr ivalent, preservative free 11/03/2017,12/17/2016 MMR 02/16/2002,01/16/1999 Meningococcal Conj (Menactra) MCV4P 07/30/2016,0 03/14/2010 Tdap 03/18/2010,03/14/2010 Varicella 05/20/2007,01/16/1999 Family History Relation Name Status Comments Brother Alive Brother: Asthma Father Alive Father: Alive a nd well Maternal Grandfather Materna l grandfather: Cancer, liver Mother Alive Mother: Depress ion Other No family histo ry of *Thrombophilia, Family history of Migraines, Family history of Asthma, Family history of Diabetes mellitus, Family history of Hyperlipidemia Sister Sister: Asthma Social History Tobacco Use Types Packs/Day Years Used Date Smoking Tobacco: Never Smokeless Tobacco: Never Comments:Never smoker Alcohol Use Standard Drinks/Week Comments No 0 (1 standard drink = 0.6 oz pur e alcohol) Comments No Sex and Gender Information Value Date Recorded Sex Assigned at Not on file Legal Sex Female 5:12 PM EDT Gender Identity Not on file Sexual Orientation Not on file Last Filed Vital Signs Vital Sign Reading Time Taken Comments Blood Pressure 127/78 11/03/2017 1:33 PM EDT Pulse 88 11/03/2017 1:33 PM EDT Temperature 37.1 ??C (98.8 ??F) 05/24/2017 4:57 PM ED T Respiratory Rate - - Oxygen Saturation - - Inhaled Oxygen Concentration - - Weight 59.9 kg (132 lb) 11/03/2017 1:33 PM EDT Height 154.3 cm (5' 0.75 ) 12/17/2016 1:16 PM ED T Body Mass Index 25.15 12/17/2016 1:16 PM EDT Plan of Treatment Health Maintenance Due Date Last Done Comments DTaP,Tdap,and Td Vaccines (8 - Td or Tdap) 03/18/2020 03/18/2010, 03/14/2010, 02/16/2002, Additional history exists Influenza Vaccines (#1) 2023 11/04/19 18, 12/17/2016, 04/16/2015, Additional history exists COVID-19 Vaccine ( season) 2023 Hepatitis B Vaccines Completed 1998, 1998, 1998 HIB Vaccines Completed 04/17/1999, 09/1998, 1998, Additional history exists IPV Vaccines Completed 02/16/2002, 03/1999, 1998, Additional history exists MMR Vaccines Completed 02/16/2002, 01/16/1999 Varicella Vaccines Completed 05/20/2007, 01/16/1999 Hepatitis A Vaccines Completed 07/30/2016, 04/16/19 16 Meningococcal Vaccine Completed 07/30/2016, 011 HPV Vaccines Completed 11/14/2019, 06/2011, 05/16/2010, Additional history exists Men B Vaccine Aged Out No longer cora ramirez based on patient's age to complete this topic Pneumococcal Vaccine Aged Out No long er eligible based on patient's age to complete this topic Procedures * Due to [place] Immun[employer] law, this organization might not be sharing sensitive test results. Procedure Name Priority Date/Time Associated Diagnosis Comments CHLAMYDIA AND GONORRHEA, AMPLIFIED Routine 11/03/2017 2:20 PM EDT Screen for sexually transmitted diseases from Last 3 Months or Most Recently Relevant to Health Maintenance Results * Due to [place] Immun[employer] law, this organization might not be sharing sensitive test results. * Chlamydia and Gonorrhoea, Amplified (11/03/2017 2:20 PM EDT) Chlamydia Trachomatis, DNA Probe NEGATIVE (NEG) [facility] Comment: No Chlamydia Trachomatis RNA detected in this patient's sample ? (REFERENCE RANGE/NORMAL VALUE: NOT DETECTED) ? Note: This test uses reagent tender- mediated amplification method to detect rRNA from C. Trachomatis URINE GC AMP PROBE NEGATIVE (NEG) [facility] Comment: No Neisseria Gonorrhoeae RNA detected in this patient's sample ? (REFERENCE RANGE/NORMAL VALUE: NOT DETECTED) ? NOTE: This test uses reagent tender-mediated amplification method to detect rRNA from N.Gonorrhoeae. A negative result does not preclude infection. In the case of a negative urine result, testing of an endocervical(female) or urethral (male) specimen is recommended if there is high clinical suspicion of infection. Due to very high sensitivity of Nucleic Acid Amplification Test, false positive results may occur. Therefore, specimen handling is extremely important. In patients in whom the disease is unlikely, additional sample for testing should be considered after an initial positive result. The performance characteristics of this test have not been evaluated in children. The Aptima Combo2 assay is not intended for the evaluation of suspected sexual abuse or for other medico-legal indications. The ordering provider should assess if the patient had consensual sex without risk of sexual abuse. Consult the [facility] if needed. Contact phone number . Therapeutic failure or success cannot be determined with the Aptima Combo2 assay since nucleic acid may persist following appropriate antimicrobial therapy. The Centers for Disease Control and Prevention (CDC) recommends confirmatory retesting using culture or a different nucleic acid amplification test when positive results occur, if indicated. Testing performed or reported by [facility], a Service of [facility], [facility] [address], [place] [address] CLIA [id number] Pascual Loaiza MD, Roving Sizer Urine 11/03/2017 2:20 PM EDT 11/03/2017 10:11 PM EDT us Toya Youngblood MD LAB MICROBIOLOGY - GENERAL ORD ERABLES Final Result [facility] from Last 3 Months or Most Recently Relevant to Health Maintenance
--- OUTSIDE RECORDS SUMMARY | 2024-06-21 15:54 | XMS_ITS | Encounter Summary ---
Author Organization [facility] Address [address] [place] [address] Phone Care Team Providers Care Steam Fitter Supervisor Maintenance Name Role Phone Unavailable Primary Care Provider Unavailabl e Encounter Details Date Type Department Care Team (Late st Contact Info) Description 06/07/2013 Documentation [facility] [facility] [place] [address] Family Medicine, Physician [address] [place], [place] [phone] Social History Tobacco Use Types Packs/Day Years [...]
--- OUTSIDE RECORDS SUMMARY | 2024-06-21 15:55 | XMS_ITS ---
Author Organization [facility] Address [address] [place] [id number] Care Team Providers Care Senior Research Executive Name Role Phone CHAYA ADHIKARI Unavailable [phone] Allergies No Known Allergies Results Component Value Reference Range Notes Chlamydia/GC Amplification-1 [id number] Reviewed date:11/08/2023 12:18:35 PM Interpretation:Negative Performing Lab:[facility] [place], [address], [address], [place], Phone - [phone], [facility] Notes/Report: Clinical Information:SRC: ORAL SRC: VAG Chlamydia trachomatis, SCOT Negative Negative Neisseria gonorrhoeae, SCOT Negative Negative Trich vag by SCOT-[id number] Reviewed date:11/08/2023 12:18:45 PM Interpretation:Negative Performing Lab:[facility] [place], [address], [address], [place], Phone - [phone], [facility] Notes/Report: Clinical Information:SRC: ORAL SRC: VAG Trich vag by SCOT Negative Negative Ct/GC SCOT, Pharyngeal-[id number] Reviewed date:11/04/2023 04:20:07 PM Interpretation:Negative Performing Lab:[facility] [place], [address], [address], [place], Phone - [phone], Director [facility] Notes/Report: Clinical Information:SRC: ORAL SRC: VAG C. trachomatis, SCOT, Pharyn Negative Negative N. gonorrhoeae, SCOT, Pharyn Negative Negative Pap IG (Image Guided)-[id number] Reviewed date:11/08/2023 03:34:58 PM Interpretation:Normal Performing Lab:[facility], [address], [address], [place], Phone - [phone], [facility] Notes/Report: Clinical Information:[id number] No. of containers..01 ThinPrep Vial DIAGNOSIS: NEGATIVE FOR INTRAEPITHELIAL LESION OR MALIGNANCY. PREDOMINANCE OF COCCOBACILLI CONSISTENT WITH SHIFT IN VAGINAL ANNETTE IS PRESENT. Specimen adequacy: Satisfact ory for evaluation. Clinician provided ICD10: Z1 2.4 Performed by: Milla macario, Marketing Content Coordinator ([facility]) . . Note: The Pap smear is a screening test designed to aid in the detection of premalignant and malignant conditions of the uterine cervix. It is not a diagnostic procedure and should not be used as the sole means of detecting cervical cancer. Both false-positive and false-negative reports do occur. . Test Methodology: This liquid based ThinPrep(R) pap test was screened with the use of an image guided system. PDF Report Reviewed date:11/08/2023 03:35:13 PM Interpretation:Reviewed Performing Lab:[facility], [address], [address], [place], Phone - [phone], Director - [facility] Notes/Report: Clinical Information:[id number] No. of containers..01 ThinPrep Vial REASON FOR VISIT Annual with Pap per protocol ,last Pap ,unsure of date ,NIL ,at [facility] . MM with same partner x 7 years but requests vaginal culture today ,no sxs reported .Aware of all test accuracy ., Reports has oc Rx x 1 year from pill check at in 08/2023 .Reports 'doing well ' with OCPs . Medications Medication SIG (Take, Route, Frequency, Duration) Notes Start Date End Date Status Macrobid 100 MG 1 capsule Orally Twice a day for 7 days Rx dispensed # 14 caps in -house 03/20/2021 Not-Taking metroNIDAZOLE 500 MG 1 tablet Orally Twice a day, every 12 hours for 7 days Rx from to start on 03/04/2023 03/04/2023 Not-Taking Diflucan 150 MG 1 tablet Orally 1 tab po stat ,rept x 3 days for 3 days Rx from to start on 03/04/2023 03/04/2023 Not-Taking 03/06 1-20 MG-MCG 1 tablet Orally Once a day for 365 days please fill 1 year supply per [place] access act thank you! Active Social History Sex Assigned At : Social History Observation Description Sex Assigned At Female Vital Signs Blood pressure systolic 100 mm Hg 11/03/19 24 Blood pressure diastolic 68 mm Hg 024 Height 61 in 11/03/2023 Encounters Encounter Location Date Provider Diagnosis [facility] [address] [place], [place] [id number] 11/03/2023 CHAYA ADHIKARI Encounter for gynecological examination (general) (routine) without abnormal findings Z01.419 ; Routine Pap Screening Z12.4 ; Encounter for screening for infections with a predominantly sexual mode of transmission Z11.3 and Counseling/Contracept rosalva Advice Z30.09 Assessments Encounter Date Diagnosis (ICD Code) Assessment Notes Treatment Notes Treatment Clinical Notes Section Notes 11/03/2023 Encounter for gynecological examination (general) (routine) without abnormal findings (ICD-10 - Z01.419) Annual exam with Pap per protocol No sxs reported Vaginal swab collected and sent Happy with oc Rx,no C/Is to continued use Urged 100% safer sex /condoms Visit documented . 11/03/2023 Routine Pap Screening (ICD-10 - Z12.4) 11/03/2023 Encounter for screening for infections with a predominantly sexual mode of transmission (ICD-10 - Z11.3) 11/03/2023 Counseling/Contrac eptive Advice (ICD-10 - Z30.09) 11/03/2023 Other Discussed STI risks, screening, and safe sex Plan Of Treatment Treatment Notes Assessment Notes Encounter for gynecological examination (general) (routine) without abnormal findings Annual exam with Pap per protocol No sxs reported Vaginal swab collected and sent Happy with oc Rx,no C/Is to continued use Urged 100% safer sex /condoms Visit documented . Other Discussed STI risks, screening, and safe sex Next Appt Details Follow Up: 1 Year/Patricia june n: Progress Notes * Tish ALFARODOB: [birth year] (23 yo F)Acc No.[id number]:11/03/2023 Progress Notes Patient:?Tish ALFARO Provider:?Chaya Cohen CNM :2000???Age:23 Y???Sex:Female D ate:11/03/2023 Address:[place], [place] Subjective: * Chief Complaints: * ???Annual with Pap per jesse col ,last Pap ,unsure of date ,NIL ,at [facility] . MM with same partner x 7 years but requests vaginal culture today ,no sxs reported .Aware of all test accuracy .Reports has oc Rx x 1 year from pill check at in 08/2023 .Reports 'doing well ' with OCPs . * HPI: ???Visit Narrative:?Reason for the visit:?Annual with Pap.?Current form of control:?03/06?.?LMP:?Approx end of September 2023 ,on oc Rx.?Last date of UPI:?10/31/2023.?Other Notes for the Clinician:?Client presents for annual with Pap and routine testing. Client requests GC/CT, Trich, no BW today. Client reports they are content with OCPs and have no other concerns for clinician..? * ROS:?Vaginal/Breast/ Control FU:?Denies?Missed period(s).?Denies?Painful intercourse.?Denies?Painful menses.?Denies?Vaginal bleeding between periods.?Denies?Vaginal discharge/itching.? * Medical History:? * Sales Floor Team Member History:? control:?oral contraceptive pill.?Last menstrual period:?end of September 2023.?[facility] ,?[facility] ,NIL.?Menarche: ?Age of menarche?8 ???Periods:?every 28 [...] STIs, Prevention of ?Currently sexually active??Yes x 7 years, unsure ?Sexually active with:?Men ?Number of male partners?1 ?Your sexual activities include:?oral intercourse, vaginal intercourse ?Reviewed types of EC??Yes ?Have you/your partner(s) ever used EC??Yes ?Offered client EC??No ?Do you use condoms??No ?Date of last unprotected intercourse:?10/31/2023 ?Number of partners in past 3 months:?1 [...] counseled on the following topics at this visit:?STIs, Control ?Please indicate the length of time, in minutes, that counseling was provided.?7 ?Counseling Was Provided By:?peter * Medications:?TakingJunel 03/06 1-20 MG-MCG Tablet 1 tablet Orally Once a day , Notes to Pharmacist: please fill 1 year supply per [place] access act thank you!Taking Junel FE 03/06 1-20 MG-MCG Tablet 1 tablet Orally Once a day , Notes to Pharmacist: please fill 1 year supply per [place] access act thank you!Not- Taking/PRNmetroNIDAZOLE 500 MG Tablet 1 tablet Orally Twice a day, every 12 hours , Notes to Pharmacist: Rx from [facility] to start on 03/04/2023iflucan 150 MG Tablet 1 tablet Orally 1 tab po stat ,rept x 3 days , Notes to Pharmacist: Rx from [facility] to start on 03/04/2023Macrobid 100 MG Capsule [...] patient * Allergies:?N.K.D.A.no[Allerg ies Verified] Objective: * Vitals:?BP:100/68mm Hg, Ht: 61 in, Wt: Not Taken - Declined by Patient, BMI: Not Taken - Declined by Patient, Ht-cm: 154.94. * Examination: ???Genitourinary: ?EXTERNAL GENITALIA:?External Genitalia:?normal, no lesions ?VAGINA:?Vagina:?normal appearance, no abnormal discharge, no lesions ?BLADDER:?Bladder:?no mass, non-tender ?URETHRA:?Urethra:?no erythema or lesions present ?CERVIX:?Cervix:?no lesions, nontender ?UTERUS:?Uterus:?nontender, normal contour, normal mobility, normal size ?ADNEXA:?Adnexa:?no masses, no tenderness ?ANUS AND PERINEUM:?Anus/Perineum:?visually normal?General Exam: ?CONSTITUTIONAL:?General Appearance:?alert, in no acute distress, normal, well nourished ?NECK/THYROID:?Inspection/Palpation:?normal ?Thyroid:?normal size and shape ?RESPIRATORY:?Auscultation:?clear to auscultation bilaterally ?Respiratory Effort:?normal ?CARDIOVASCULAR:?Auscultation:?regular rate and rhythm ?BREAST, Right:?Inspection/Palpation:?no discharge, no masses present, no nipple retraction, no skin changes, no skin dimpling, no tenderness, no lymphadenopathy, no axillary mass, no axillary tenderness ?BREAST, Left:?Inspection/Palpation:?no discharge, no masses present, no nipple retraction, no skin changes, no skin dimpling, no tenderness, no lymphadenopathy, no axillary mass, no axillary tenderness ?GASTROINTESTINAL:?Abdomen:?no masses, nontender, nondistended ?Liver and Spleen:?no hepatomegaly present ?SKIN:?Skin:?normal ?NEURO/PSYCH:?Orientation:?time , place, person ?Mood/Affect:?normal??? Assessment: * Assessment: 1.?Encounter for gynecologic al examination (general) (routine) without abnormal findings - Z01.419 (Primary)???2.?Routine Pap Screening - Z12.4???3.?Encounter for screening for infections with a predominantly sexual mode of transmission - Z11.3? ?4.?Counseling/Contraceptive Advice - Z30.09??? Plan: * Treatment: 2.?Routine Pap Screening?LAB: Pap IG (Image Guided)-[id number] (Collection Date & Time - 11/03/2023 01:32 PM) ? Value Reference Range ?. . - * CHAYA ADHIKARI 024 03:33:26 PM EDT >Noted NIL Pap ,rept .x 3 years per protocol .Client informed .LM .This lab was reviewed by CHAYA ADHIKARI on 11/08/2023 at 15:34 PM EDT 3.?Others? Notes: Discussed STI risks, screening, and safe sex?? * Labs:? * ?Lab: Chlamydia/GC Ampli fication-[id number] (Collection Date & Time - 11/03/2023 01:32 PM) ? Value Reference Range ?Chlamydia trachomatis, SCOT Negative Negative - * ?Neisseria gonorrhoeae, SCOT Negative Negative - * This lab was reviewed by MARTITA ADHIKARI on 11/08/2023 at 12:18 PM EDT ?Lab: Ct/GC SCOT, Pharyngeal-[id number] (Collection Date & Time - 11/03/2023 01:32 PM)* ? Value Reference Range ?C. trachomatis, SCOT, Pharyn Negative Negative - * ?N. gonorrhoeae, SCOT, Pharyn Negative Negative - * This lab was reviewed by MARTITA ADHIKARI on 11/04/2023 at 16:20 PM EDT ?Lab: Trich vag by SCOT-[id number] (Collection Date & Time - 11/03/2023 01:32 PM) * ? Value Reference Range ?Trich vag by SCOT Negative Negati ve - * This lab was reviewed by MARTITA ADHIKARI on 11/08/2023 at 12:18 PM EDT ?Lab: PDF Report* felton, support 10/17 02:10:06 : This order was created by the Interface.This lab was reviewed by CHAYA ADHIKARI on 11/08/2023 at 15:35 PM EDT * Procedure Codes:? * Follow Up:?1 Year/prn * Billing Information: * Visit Code:? 16692 Existing Preventative - Age 18-39 (IN USE). * Procedure Codes:? * Sign off status: Completed true * Provider:?Chaya Cohen CNM Date :?11/03/2023 Generated for Mahamedi violetta/Lucy/Teresa on:?06/21/2024 03:54 PM EDT History and Physical Notes * HPI (History of Present Illness) Category Sub-Category Detail Notes Category Not es Visit Narrative Reason for the visit: Annual with Pap Current form of control: 03/06 Other Notes for the Clinician: Client pr esents for annual with Pap and routine testing. Client requests GC/CT, Trich, no BW today. Client reports they are content with OCPs and have no other concerns for clinician. LMP: Approx end of September 2023 ,on oc Rx Last date of UPI: 10/31/2023 Examination Category Sub-Category Detail Notes Category Not es General Exam CONSTITUTIONAL: General Appearan ce:: alert, in no acute distress, normal, well nourished NECK/THYROID: Inspection/Palpation:: normal Thyroid:: normal size and shape RESPIRATORY: Auscultation:: clear to ausculta tion bilaterally Respiratory Effort:: normal CARDIOVASCULAR: Auscultation:: regular rate and rhythm GASTROINTESTINAL: Abdomen:: no masses, nontender , nondistended Liver and Spleen:: no hepatomegaly prese nt SKIN: Skin:: normal NEURO/PSYCH: Orientation:: time , place, pers on Mood/Affect:: normal BREAST, Right: Inspection/Palpation :: no discharge, no masses present, no nipple retraction, no skin changes, no skin dimpling, no tenderness, no lymphadenopathy, no axillary mass, no axillary tenderness BREAST, Left: Inspection/Palpation :: no discharge, no masses present, no nipple retraction, no skin changes, no skin dimpling, no tenderness, no lymphadenopathy, no axillary mass, no axillary tenderness Genitourinary EXTERNAL GENITALIA: External Genitalia:: nor mal, no lesions VAGINA: Vagina:: normal appearance, no a bnormal discharge, no lesions BLADDER: Bladder:: no mass, non-tender URETHRA: Urethra:: no erythema or lesions present CERVIX: Cervix:: no lesions, nontender UTERUS: Uterus:: nontender, normal conto ur, normal mobility, normal size ADNEXA: Adnexa:: no masses, no tendernes s ANUS AND PERINEUM: Anus/Perineum:: visually norm al
--- OUTSIDE RECORDS SUMMARY | 2024-06-21 15:55 | XMS_ITS | Encounter Summary ---
Author Organization [employer] Address [address] [facility] [address] [place] [address] Care Team Providers Care Addiction Treatment Counselor Name Role Phone Juanita Albarran MD Primary Care Provider [phone] Reason for Visit * Reason Onset Date Comments Lab Orders 06/21/2024 Encounter Details Date Type Department Care Team ([facility] st Contact Info) Description 06/21/2024 Telephone [facility] MEDICINE [address] [place] [address] Juanita Albarran MD [address] [place] [address] Lab Orders Social History Tobacco Use Types Packs/Day Years Used Date Smoking Tobacco: Never Passive Smoke Exposure: Never Smokeless Tobacco: Never Alcohol Answer Date Recorded How often do you have a drink containing alcohol ? 2 05/26/2024 How many drinks containing a lcohol do you have on a typical day when you are drinking? 0 05/26/2024 How often do you have six or more drinks on one occasion? 2 05/26/2024 Depression Answer Date Recorded Patient Health Questionnaire-9 Score 3 05/26/2024 Patient Health Questionnaire-9 Score 3 05/26/2024 Last PHQ-9: Questionnaire Data Not on file 0 05/26/2024 Housing Stability Answer Date Recorded What is your housing situation today? I have tamika junior 05/26/[address] you li ve. Do you have problems with any of the following? None of the above 05/26/2024 Food Insecurity Answer Date Recorded Within the past 12 months, y ou worried that your food would run out before you got money to buy more: Never True 05/26/2024 Within the past 12 months,th e food you bought just didn't last and you didn't have enough money to get more: Never True 12/2024 Transportation Answer Date Recorded In the past 12 months, has l ack of transportation kept you from medical appts, meetings, work or from getting things needed for daily living? No 05/26/2024 Utilities Answer Date Recorded In the past 12 months, has t he electric, gas, oil or water company threatened to shut off services in your home? No 05/26/2024 Depression Answer Date Recorded Patient Health Questionnaire-2 Score 1 05/26/2024 Internet Access Answer Date Recorded Internet Access Q1 Yes 05/26/2024 Internet Access Q2 Not on file 05/26/2024 Comments Unknown Sex and Gender Information Value Date Recorded Sex Assigned at Female 12/15/2021 10:39 AM EDT Legal Sex Female 10:39 AM EDT Gender Identity Female 12/15/2021 10:39 AM EDT Sexual Orientation Straight 12/15/2021 10 :39 AM EDT documented as of this encounter Miscellaneous Notes * Telephone Encounter - Melania Ontiveros RN - 06/21/2024 2:29 PM EDT TC to pt to confirm that she needed blood Hep B and TB tests for college. RN put in orders. Pt verbalized understanding and agreement with the plan of care. * Telephone Encounter - Colby Gunn - 06/21/2024 2:20 PM EDT Tc from pt requesting lab orders due to college requesting labs - TB test - Hep B documented in this encounter Plan of Treatment Scheduled Orders Name Type Priority Associated Diagnoses Orde r Schedule T-SPOT??.TB Lab Routine Screening due Expected: 06/21/2024 (Approximate), Expires: 06/21/2025 Hepatitis B Surface Antibody, Qualitative Lab Routine Screening due Expected: 06/21/2024 (Approximate), Expires: 06/21/2025 Hepatitis B surface antigen, EIA Lab Routine Screening due Expected: 06/21/2024 (Approximate), Expires: 06/21/2025 Hepatitis B Core Antibody, Total Lab Routine Screening due Expected: 06/21/2024 (Approximate), Expires: 06/21/2025 documented as of this encounter Visit Diagnoses Diagnosis Screening due- Primary documented in this encounter Additional Health Concerns Assessment Noted Time PHQ-9 Depression Total Score: 3 05/27/19 25 2:31 PM EDT documented as of this encounter Care Teams Addiction Treatment Counselor Relationship Specialty Start Date End Date Juanita Albarran MD [address] [place] [id number] PCP - General Family Medicine 10/16/20 documented as of this encounter
--- OUTSIDE RECORDS SUMMARY | 2024-06-21 15:55 | XMS_ITS | Data Portability ---
Author Organization [facility], [address] Address [address] [place] [address] Assessment No assessment recorded. Plan of Treatment Reminders Order Date Submit Date Provider Last Modified By Organization Details Last Modified Time Details Appointments None recorded. Lab urinalysis, dipstick 2022 023 [facility], [address] [place] [address], [place], [address], 3 19:43:16 test, urine 2022 023 [facility], [address] [place] [address], [place], [address], 3 19:43:17 culture, urine 2022 023 [facility] [address] [place] [address], [address], 3 16:06:17 vaginal pathogens panel, SCOT+probe, vaginal fluid 2022 023 [facility] 3[facility] [address] [place] [address], [address], 3 20:06:14 Referral None recorded. Procedures None recorded. Surgeries None recorded. Imaging None recorded. Medication Orders doxycycline hyclate 100 mg tablet 2022 023 [email or web address] [facility] #[id number], [address] [facility], [place], [address], 19:43:17 ceftriaxone 1 gram solution for injection 2022 023 [email or web address] Not available 19:43:17 fluconazole 150 mg tablet 2022 023 [email or web address] [facility] #[id number], [address] [place] [address], [address], 19:43:17 Patient TargetsNo targets recorded. Patient Instructions Encounter Date Encounter Id Patient Instructions Last Modified By Organization Details Last Modified Time 03/06/2022 [id number] We recommend you get a repeat urinalysis in 2 weeks to ensure that any abnormalities have resolved. If urine abnormalities persist, you will likely need further testing or treatment. We will contact you within 3 to 5 days with the results of your lab test. If you have not heard back from us within that time frame, please feel free to contact our office regarding your results. Go to the Emergency Department immediately if your symptoms worsen or if you develop new symptoms that concern you. Drink plenty of fluids You should follow-up with your PCP in 4-5 days, or at any time if your condition does not improve or worsens. Any acute change should prompt a visit to the nearest Emergency Department. Not available 03/06/2022 19:34:45 All sexually active men and women should receive periodic testing for STD's. The frequency that these tests should be repeated is dependent upon several factors, including the number of sexual partners, use of barrier contraception, and other factors. Testing should include screening for Chlamydia, Gonorrhea, Syphilis, and HIV. Additional testing may be required if symptoms of specific STD's are present. If you are sexually active, you should follow up with the Local Health Department for HIV testing and any other testing not performed by [facility]. Partners should be notified and testing should occur as well if concerns exist. Not available 03/06/2022 19:34:57 Reason for Referral None Reported. Results Created Date Observation Date Name Description Value Unit Range Abnormal Flag Note LastModifiedBy Organization Detail LastModifiedTime 03/06/19 23 03/10/2022 URINE CULTU RE, ROUTI NE urine culture, routine FINAL REPORT Not Available [facility] ([facility]) [address] [facility], [place], [address], 03/10/2022 16:06:57 03/06/19 23 03/10/2022 URINE CULTU RE, ROUTI NE result 1 LACTOB ACILLU S SPECIE S 25,00 0-50, 000 colon y formi ng units per mL Susce ptibi lity not damion lly perfo rmed on this organ ism. Not Available [facility] ([facility]) [address] [place], [address], 03/10/2022 16:06:57 03/06/19 23 03/11/2022 NUSWA B VAGIN ITIS PLUS (VG+) trich vag by SCOT NEGATI VE negati ve Not Available [facility] ([facility]) [address] [place], [address], 03/12/2022 20:06:14 03/06/19 23 03/11/2022 NUSWA B VAGIN ITIS PLUS (VG+) chlamydia trachomatis, SCOT NEGATI VE negati ve Not Available [facility] ([facility]) [address] [place], [address], 03/12/2022 20:06:14 03/06/19 23 03/11/2022 NUSWA B VAGIN ITIS PLUS (VG+) neisseria gonorrhoeae, SCOT NEGATI VE negati ve Not Available [facility] ([facility]) [address] [place], [address], 03/12/2022 20:06:14 03/06/19 23 03/12/2022 NUSWA B VAGIN ITIS PLUS (VG+) atopobium vaginae LOW - 0 score Not Available [facility] ([facility]) [address] [place], [address], 03/12/2022 20:06:14 03/06/19 23 03/12/2022 NUSWA B VAGIN ITIS PLUS (VG+) bvab 2 LOW - 0 score Not Available [facility] ([facility]) [address] [facility], [place], [address], 03/12/2022 20:06:14 03/06/19 23 03/12/2022 NUSWA B VAGIN ITIS PLUS (VG+) megasphaera 1 LOW - 0 score Calcu late total score by ritika g the 3 indiv idual bacte rial vagin osis (BV) marke r score s toget her. Total score is inter prete d as follo ws: Total score 0-1: Indic ates the absen ce of BV. Total score 2: Indet ermin ate for BV. Addit ional clini hiro data shoul d be evalu ated to estab rogers a diagn osis. Total score 3-6: Indic ates the prese nce of BV. This test was devel oped and its perfo rmanc e evonne cteri stics deter mined by [facility]. It has not been clear ed or appro sean by the Food and Drug Admin istra tion. Not Available [facility] ([facility]) [address] [facility], [place], [address], 03/12/2022 20:06:14 03/06/19 23 03/12/2022 NUA B VAGIN ITIS PLUS (VG+) chance albicans, SCOT POSITI VE negati ve abnormal Not Available [facility] ([facility]) [address] [facility], [place], [address], 03/12/2022 20:06:14 03/06/19 23 03/12/2022 NUA B VAGIN ITIS PLUS (VG+) chance glabrata, SCOT NEGATI VE negati ve Not Available [facility] ([facility]) [address] [facility], [place], [address], 03/12/2022 20:06:14 03/06/19 23 03/06/2022 urina lysis , dipst ick Unknown Analyte Normal = light yellow Not Available [facility], [place], [address], 03/06/2022 19:05:41 03/06/19 23 03/06/2022 urina lysis , dipst ick Unknown Analyte Yellow Not Available [facility] [address], [place], [address], 03/06/2022 19:05:41 03/06/19 23 03/06/2022 urina lysis , dipst ick Unknown Analyte Normal = clear Not Available carmen parra [address], [place], [address], 03/06/2022 19:05:41 03/06/19 23 03/06/2022 urina lysis , dipst ick Unknown Analyte Clear Not Available [address], [place], [address], 03/06/2022 19:05:41 03/06/19 23 03/06/2022 urina lysis , dipst ick Unknown Analyte Normal = negati ve Not Available carmen parra [address], [place], [address], 03/06/2022 19:05:41 03/06/19 23 03/06/2022 urina lysis , dipst ick Unknown Analyte Negati ve Not Available carmen parra [address], [place], [address], 03/06/2022 19:05:41 03/06/19 23 03/06/2022 urina lysis , dipst ick Unknown Analyte Normal = Negati ve Not Available carmen parra [address], [place], [address], 03/06/2022 19:05:41 03/06/19 23 03/06/2022 urina lysis , dipst ick Unknown Analyte Negati ve Not Available carmen parra [address], [place], [address], 03/06/2022 19:05:41 03/06/1903/06/2022 urina lysis , dipst ick Unknown Analyte Normal = Negati ve Not Available carmen parra [address], [place], [address], 03/06/2022 19:05:41 03/06/19 23 03/06/2022 urina lysis , dipst ick Unknown Analyte Trace Not Available [facility] [address], [place], [address], 03/06/2022 19:05:41 03/06/19 23 03/06/2022 urina lysis , dipst ick Unknown Analyte Normal = 1.010, 1.015, 1.020 Not Available carmen parra [address], [place], [address], 03/06/2022 19:05:41 03/06/19 23 03/06/2022 urina lysis , dipst ick Unknown Analyte 1.025 Not Available bethanie [address], [place], [address], 03/06/2022 19:05:41 03/06/19 23 03/06/2022 urina lysis , dipst ick Unknown Analyte Normal = Negati ve Not Available carmen parra [address], [place], [address], 03/06/2022 19:05:41 03/06/19 23 03/06/2022 urina lysis , dipst ick Unknown Analyte Modera te Not Available carmen parra [address], [place], [address], 03/06/2022 19:05:41 03/06/19 23 03/06/2022 urina lysis , dipst ick Unknown Analyte Normal = 6.5, 7.0, 7.5, 8.0 Not Available carmen parra [address], [place], [address], 03/06/2022 19:05:41 03/06/19 23 03/06/2022 urina lysis , dipst ick Unknown Analyte 5.5 Not Available [address], [place], [address], 03/06/2022 19:05:41 03/06/19 23 03/06/2022 urina lysis , dipst ick Unknown Analyte Normal = Negati ve Not Available carmen parra [address], [place], [address], 03/06/2022 19:05:41 03/06/19 23 03/06/2022 urina lysis , dipst ick Unknown Analyte Negati ve Not Available [facility] [address], [place], [place], [address], 03/06/2022 19:05:41 03/06/19 23 03/06/2022 urina lysis , dipst ick Unknown Analyte Normal = 0.2, 1.0 Not Available [facility] [address], [place], [address], 03/06/2022 19:05:41 03/06/19 23 03/06/2022 urina lysis , dipst ick Unknown Analyte 0.2 E.U./d L Not Available [facility] [address], [place], [address], 03/06/2022 19:05:41 03/06/19 23 03/06/2022 urina lysis , dipst ick Unknown Analyte Normal = Negati ve Not Available [address], [place], [address], 03/06/2022 19:05:41 03/06/19 23 03/06/2022 urina lysis , dipst ick Unknown Analyte Negati ve Not Available 2099carmen parra [address], [place], [address], 03/06/2022 19:05:41 03/06/19 23 03/06/2022 urina lysis , dipst ick Unknown Analyte Normal = Negati ve Not Available [facility] [address], [place], [address], 03/06/2022 19:05:41 03/06/19 23 03/06/2022 urina lysis , dipst ick Unknown Analyte Small Not Available [address] [place] [address], [place], [address], 03/06/2022 19:05:41 03/06/19 23 03/06/2022 pregn natali test, urine Unknown Analyte Normal = Negati ve Not Available [address] [place] [address], [place], [address], 03/06/2022 19:05:42 03/06/19 23 03/06/2022 pregn natali test, urine Unknown Analyte negati ve Not Available [address] [place] [address] [place], [address], 03/06/2022 19:05:42 Result Notes None recorded. Problems Name Problem SNOMED Code Status Onset Date Resolution Date Notes Provider Name and Address Organization Details Recorded Time Eczema 60157029 Active 03/06/19 SHANTE Munoz [facility] 03/06/2022 19:06:58 Problem Notes None recorded. Medical Equipment None Reported. Allergies No known drug allergies Medications Name Sig Start Date Stop Date Status Note LastModified by Organization Details LastModified Time methocarbam ol 500 mg tablet TAKE 1 TABLET BY MOUTH FOUR TIMES A DAY 03/06 completed Not Available Not Available Not Available fluconazole 150 mg tablet Take 1 tablet every day by oral route with meals for 1 day. 2022 active Not Available Not Available Not Avai lable metronidazo le 500 mg tablet Take 1 tablet by mouth 2 times a day. Do not consume alcohol while taking this product. 03/06 completed Not Available Not Available Not Available ceftriaxone 1 gram solution for injection Take 500 mg every day by injection route as directed for 1 day. 2022 active Not Available Not Available Not Avai lable ibuprofen 400 mg tablet TAKE 1 TABLET BY MOUTH EVERY 8 HOURS NEEDED 03/06 completed Not Available Not Available Not Available ibuprofen 600 mg tablet TAKE 1 TAB BY MOUTH EVERY 6 HOURS NEEDED FOR PAIN 03/06 completed Not Available Not Available Not Available doxycycline hyclate 100 mg tablet Take 1 tablet twice a day by oral route with meals for 7 days. 2022 active Not Available Not Available Not Avai lable June03/06 (28) 1 mg-20 mcg (21)/75 mg (7) tablet TAKE 1 TABLET BY MOUTH EVERY DAY active Not Available Not Available No t Available nitrofurant oin monohydrate /macrocryst als 100 mg capsule TAKE 1 CAPSULE BY MOUTH TWICE A DAY FOR 7 DAYS 03/06 completed Not Available Not Available Not Available Vitals Date Recorded Body height Body mass index (BMI) Body weight Provider Name and Address Organization Details Last Updated DateTime 03/06/2022 154.94 cm 32.7 kg/m2 94967.48 g Sheba FREY [facility] 03/06/2022 19:06:08 Date Recorded Oxygen saturation Oxygen saturation in Arterial blood by Pulse oximetry Heart rate Respiratory rate Body temperature Systolic blood pressure Diastolic blood pressure Provider Name and Address Organization Details Last Updated DateTime 100 % 100 % 72 /min 18 /min 98.7 [degF] 108 mm[Hg] 71 mm[Hg] TIEN Ceron [employer] 19:25:45 Social History Question Answer Notes LastModified by Organizat ion Details LastModified Time Tobacco Smoking Status Never Smoker Sheba hull PA [employer] 03/06/2022 19:07:07 What Is Your Level Of Alcohol Consumption? None Information not available 03/06/2022 Have You Had Direct Contact, Or Contact During Intimacy, With Monkeypox Rash, Scabs, Or Body Fluids From A Person With Monkeypox? No Information not available 03/06/2022 Do You Use Any Illicit Or Recreational Drugs? No Information not available 03/06/2022 Have You Recently Traveled Abroad? No Information not available 03/06/2022 Do You Or Have You Ever Used Any Other Forms Of Tobacco Or Nicotine? No Information not available 03/06/2022 Sex: Unknown Functional Status None recorded. Mental Status None recorded. Family History Relationship Description Onset Age of this Age Resolved Age Notes LastModified by Organization Details LastModified Time Father No current problems or disability Not available 03/06 19:07:00 Mother No current problems or disability Not available 03/06 19:07:00 Medical History No medical history recorded. Gynecological HistoryNo gynecological history recorded. Obstetrics History GPAL:G 0 P 0 0 0 0 Immunizations Vaccine Type Date Status Note Provider Nam e and Address Organization Details Recorded Time Tdap 1 completed Sheba [place] null, [place] - [facility] 03/06/2022 19:06:24 MMR 9 completed Sheba [place] null, [place] - [facility] 03/06/2022 19:06:24 HPV9 2 completed Sheba [place] null, PA - [facility] 03/06/2022 19:06:24 COVID-19, mRNA, LNP-S, PF, 30 mcg/0.3 mL dose 1 completed Sheba [place] null, PA - [facility] 03/06/2022 19:06:24 Hep A, ped/adol, 2 dose 6 completed Sheba [place] null, PA - [facility] 03/06/2022 19:06:24 COVID-19, mRNA, LNP-S, PF, 30 mcg/0.3 mL dose, mary ann-sucrose 2 completed Sheba [place] null, PA - [facility] 03/06/2022 19:06:24 Hep B, adult 8 completed Sheba Alejandra null, PA - [facility] 03/06/2022 19:06:24 Hep B, adult 9 completed Sheba Alejandra null, PA - [facility] 03/06/2022 19:06:24 MMR 8 completed Sheba Alejandra null, PA - [facility] 03/06/2022 19:06:24 HPV, unspecified formulation 8 completed Sheba [place] null, PA - [facility] 03/06/2022 19:06:24 Influenza, split virus, quadrivalent, PF 7 completed Sheba [place] null, PA - [facility] 03/06/2022 19:06:24 rabies, intramuscular injection 7 completed Sheba Alejandra null, PA - [facility] 03/06/2022 19:06:24 HPV9 0 completed Sheba [place] null, PA - [facility] 03/06/2022 19:06:24 Influenza, split virus, trivalent, preservative 6 completed Sheba [place] null, PA - [facility] 03/06/2022 19:06:24 Influenza, split virus, quadrivalent, PF 8 completed Sheba [place] null, PA - [facility] 03/06/2022 19:06:24 Hep A, ped/adol, 2 dose 7 completed Sheba Alejandra null, PA - [facility] 03/06/2022 19:06:24 Hep B, adolescent or pediatric 8 completed Sheba [place] null, PA - [facility] 03/06/2022 19:06:24 Influenza, split virus, quadrivalent, PF 1 completed Sheba Alejandra null, PA - [facility] 03/06/2022 19:06:24 MMR 3 completed Sheba Alejandra null, PA - [facility] 03/06/2022 19:06:24 Hep B, unspecified formulation 9 completed Sheba [place] null, PA - [facility] 03/06/2022 19:06:24 COVID-19, mRNA, LNP-S, PF, 30 mcg/0.3 mL dose 1 completed Sheba [place] null, PA - [facility] 03/06/2022 19:06:24 meningococcal MCV4P 7 completed Sheba [place] null, PA - [facility] 03/06/2022 19:06:24 Influenza, split virus, quadrivalent, preservative 6 completed Sheba [place] null, PA - [facility] 03/06/2022 19:06:24 Past Encounters Encounter ID Performer Location Encounter Start Date Encounter Closed Date Diagnosis/Indication Diagnosis SNOMED-CT Code Diagnosis ICD10 Code Diagnosis Note [id number] [address] [place] [address] 08/31/2018 15:45:33 08/31/2018 17:01:25 [id number] [address] [place] [address] 08/22/2020 17:19:18 08/22/2020 19:06:09 [id number] [address] [place] [address] 10/06/2020 16:24:56 10/06/2020 17:59:45 [id number] [address] [place] [address] 06/03/2018 15:52:46 06/03/2018 16:30:33 [id number] [address] [place] [address] 09/01/2018 14:44:50 09/01/2018 15:48:18 [id number] [address] [place] [address] 12/04/2019 11:33:03 12/04/2019 13:35:39 [id number] Leonard Radford [place] [address] [place] [address] 03/06/2022 18:54:40 03/06/2022 19:50:19 Urethritis 08357880 N34.2 Vaginitis 60906440 N76.0 Health Concerns Section Related Observation LastModified by Organization Detai ls LastModified Time None Recorded Concern Status LastModified by Organization Details LastModified Time None Recorded Advance Directives Directive None Recorded Payers Insurance Date Sequence Insurance Name Policy Number Policy Sinclair Covered Member ID Sinclair Member ID Guarantor Name 03/06/2022 1 [employer] [place] ([place] Tish Angelina [id number] Tish Angelina 03/06/2022 2 [place] Tish Angelina [id number] Tish Angelina Notes Date Note Type Note Provider Name and Address Organization Details Recorded Time 03/06/2022 text/html Urinary Complain t FemaleReported bypatient.Notes:vagi nal itching 2x days. Also burning with urination. worried about STD and unprotected sexual encounter. Leonard Radford NP [address] [place], [address], [place] - [facility] 03/06/2022 19:43:23 OBGyn Episode No OBEpisode recorded.
--- OUTSIDE RECORDS SUMMARY | 2024-06-21 15:55 | XMS_ITS | Encounter Summary ---
Author Organization [employer] Address [address] [facility] 7t [place] [address] Care Team Providers Care Rubber Mold Maker Name Role Phone Juanita Albarran MD Primary Care Provider [phone] Reason for Visit * Reason Onset Date Comments Nurse Triage 03/15/2024 Encounter Details Date Type Department Care Team ([facility] st Contact Info) Description 03/15/2024 Telephone [facility] [address] [place], [place] [phone] Juanita Albarran MD [address] [place] [address] Nurse Triage Social History Tobacco Use Types Packs/Day Years Used Date Smoking Tobacco: Never Passive Smoke Exposure: Never Smokeless Tobacco: Never Comments Unknown Sex and Gender Information Value Date Recorded Sex Assigned at Female 12/15/2021 10:39 AM EDT Legal Sex Female 10:39 AM EDT Gender Identity Female 12/15/2021 10:39 AM EDT Sexual Orientation Straight 12/15/2021 10 :39 AM EDT documented as of this encounter Miscellaneous Notes * Telephone Encounter - Mouna Eller RN - 03/15/2024 11:34 AM EST Triage call Pt reports for two days thick, white vaginal discharge and itchiness. Pt is advised to try OTC antifungal/yeast infection medications which are sold in grocery stores and pharmacy stores.Pt is given home care advice and agrees. Pt will obtain OTC treatment and if not effective will call back for further advice. Pt agrees with disposition. Protocol Used: Vaginal Discharge (Adult) Protocol-Based Disposition: Home Care Positive Triage Question: * Symptoms of a vaginal yeast infection (i.e., white, thick, wdppnyp-mkuxiw-vtea, itchy, not bad smelling discharge) * All higher-acuity triage questions were negative Care Advice Discussed: * Reassurance and Education - Vaginal Yeast Infection * Antifungal Medicine for Yeast Infection * Antifungal Medicine for Yeast Infection - Extra Notes and Warnings * Genital Hygiene * Expected Course * Reasons To Call Back - test is positive - No improvement after treating yourself for a vaginal yeast infection - Discharge becomes yellow or green - Discharge becomes foul smelling or itchy - Fever or abdomen pain occur - You become worse * Telephone Encounter - Chelsea Mullins - 03/15/2024 9:43 AM EST Symptom: Vaginal Symptoms (itchiness and discharge)- Not Bleeding Outcome: Schedule an appointment to be seen within 24 hours Reason: Caller denied all higher acuity questions The caller accepted this outcome. documented in this encounter Plan of Treatment Not on file documented as of this encounter Visit Diagnoses Not on filedocumented in this encounter Care Teams Rubber Mold Maker Relationship Specialty Start Date End Date Juanita Albarran MD [address] [place] [id number] PCP - General Family Medicine 10/16/20 documented as of this encounter
--- OUTSIDE RECORDS SUMMARY | 2024-06-21 15:55 | XMS_ITS | Clinical Summary ---
Author Organization [email or web address] Address [address] [facility] 7t [place] [address] Care Team Providers Care Principal Clerk Name Role Phone Juanita Albarran MD Primary Care Provider [phone] Allergies No known active allergies Medications 03/06 1-20 MG-MCG tablet TAKE 1 TABLET BY MOUTH EVERY DAY FOR 84 DAYS Active pseudoephedrine (Sudafed) 60 MG tablet Take 1 tablet (60 mg) by mouth every 6 (six) hours if needed for congestion for up to 10 days. 30 tablet 4 Active albuterol 108 (90 Base) MCG/ACT inhaler Inhale 2 puffs every 4 (four) hours if needed. 5 Active benzonatate (Tessalon) 100 MG capsule Take 200 mg by mouth if needed in the morning, at noon, and at bedtime. 5 Active levonorgestrel (Plan B) 1.5 MG tablet TAKE DIRECTED BY MOUTH FOR 1 DAY 5 Active lidocaine-priloc hernan (Emla) 2.5-2.5 % cream APPLY TO AREA TO BE LASERED 60 TO 90 MINUTES BEFORE APPOINTMENT 5 Active metroNIDAZOLE (Flagyl) 500 MG tablet 1 TABLET ORALLY TWICE A DAY, EVERY 12 HOURS 7 DAYS 5 Active Spacer/Aero-Hold ing Chambers (EasiVent) inhaler Inhale 1 each every 4 (four) hours if needed. 5 Active docusate sodium (Colace) 100 MG capsuleIndicatio ns:Constipation, unspecified constipation type Take 1 capsule (100 mg) by mouth 2 times daily for 10 days. 20 capsule 025 Active Problems Problem Noted Date Diagnosed Date Class 1 obesity due to exces s calories with serious comorbidity and body mass index (BMI) of 32.0 to 32.9 in adult 09/22/2023 Eczema 03/06/2022 PCOS (polycystic ovarian syndrome) 10/24/2018 Resolved Problems Problem Noted Date Diagnosed Date Resolved Date Acute otitis externa of left ear 08/02/2023 05/26/2024 Assessment & Plan (08/02/2023 4:15 PM EDT): Ordering an Ear Lavage to aid with symptoms. Prescribing Augmentin and Cortisporin for symptoms. Relevant Medications Amoxicillin-Clavulanate (Augmentin) 875-125 MG Tablet Wzmizncd-Bojvmgkot-Lwmymiaovpbifo (Cortisporin) 3.5-21371-2 Otic suspension Encounters Date Type Department Care Team Description 06/21/[address] [address] Juanita Albarran MD Lab Orders 06/01/[address] [address] Juanita Albarran MD Chart Prep 05/31/2024 1:00 PM EDT Office Visit [facility] [address] [place] [address] Therese Carrasco 05/26/2024 2:15 PM EDT Office Visit [address] [address] Mikael South CNP Encounter for physical examination (Primary Dx); Constipation, unspecified constipation type 05/26/2024 Travel 05/22/[address] [address] Juanita Albarran MD Chart Prep 05/01/[address] [address] Juanita Albarran MD Nurse Triage from Last 3 Months Immunizations Name Administration Dates Next Due DTaP, 5 pertussis antigens 02/16/2002,,1998,06/14,1998 HPV 9-Valent 11/14/2019,07/21/2011 HPV, Quadrivalent 07/21/2011,05/16/2010,03/14/19 11 HPV, Unspecified 06/07/2017 Hep A, ped/adol, 2 dose 07/30/2016,04/16/2015 Hep B, Adolescent or Pediatric 8,1998,1998,01/14 Hep B, Unspecified 1998 Hep B, adult 1998,1998,1998 Hib (PRP-T) 04/17/1999, 9,1998,04/03 IPV 02/16/2002, 0,1998,04/03 Influenza Injectable Quadriv alant Preservative Free IIV4 MDCK 11/19/2022,03/29/2022 Influenza injectable quadriv alent IIV4 with preservative 04/16/2015 Influenza injectable quadriv alent preservative free 12/23/2020,11/03/2017,12/17/2016 Influenza, IIV3, injectable 12/03/2015 Influenza, Split (incl. suleman fied surface antigen) 03/14/2010 Influenza, Unspecified 11/20/2022 MMR 06/07/2017,02/16/2002,01/16/1999 Meningococcal MCV4P ACYW-135 07/30/2016,03/14/19 11 Rabies, intramuscular 12/24/2016 Tdap 05/31/2020,03/18/2010,03/14/2010 Varicella 05/20/2007,01/16/1999 Social History Tobacco Use Types Packs/Day Years Used Date Smoking Tobacco: Never Passive Smoke Exposure: Never Smokeless Tobacco: Never Tobacco Cessation:Counseling Given: Not Answered Alcohol Answer Date Recorded How often do [...] Orientation Straight 12/15/2021 10 :39 AM EDT Last Filed Vital Signs Vital Sign Reading Time Taken Comments Blood Pressure 120/60 05/31/2024 1:03 PM EDT Pulse 76 05/26/2024 2:12 PM EDT Temperature 37.2 ??C (99 ??F) 05/26/2024 2:12 PM EDT Respiratory Rate 18 05/26/2024 2:12 PM EDT Oxygen Saturation 99% 05/26/2024 2:12 PM EDT Inhaled Oxygen Concentration - - Weight 79.5 kg (175 lb 3.2 oz) 05/26/2024 2:12 P M EDT Height 156 cm (5' 1.42 ) 01/03/2024 12:54 PM EST Body Mass Index 32.65 01/03/2024 12:54 PM EST Plan of Treatment Health Maintenance Due Date Last Done Comments HIV Screening 1998 Lipid Panel 1998 Family Planning (PISQ) 2013 Hepatitis C Screening 01/14/2016 Pap Smear 2019 Dental Oral Exam 06/29/2024 12/30/2023 Dental Prophylaxis 06/29/2024 12/30/2023 Dental X-Ray: Bitewings 12/30/2024 12/30/2023 Alcohol/Substance Use Screening 05/26/2025 05/26/2024 COVID-19 Vaccine ( season) 2025 07/09/2021, 12/10/2020, 11/04/2020 Postponed from 10/17/2023 (Patient Refused) Depression Screening 05/26/2025 05/26/2024, 05/27/19 SDOH Screening 05/26/2025 05/26/2024 Tobacco Screening 05/31/2025 05/31/2024 Dental X-Ray: Full Mouth 12/30/2026 12/30/2023 DTaP/Tdap/Td Vaccines (9 - Td or Tdap) 05/31/2030 05/31/2020, 03/18/2010, 03/14/2010, Additional history exists Zoster Vaccines (1 of 2) 01/14/2048 RSV Patients and Patients Aged 60 years or older (1 - 1-dose 75+ series) 2073 HIB Vaccines Completed 04/17/1999, 09/1998, 1998, Additional history exists IPV Vaccines Completed 02/16/2002, 03/1999, 1998, Additional history exists Hepatitis A Vaccines Completed 07/30/2016, 04/16/19 16 Meningococcal Vaccine Completed 07/30/2016, 011 Hepatitis B Vaccines Completed 06/07/2017, 1998, 1998, Additional history exists HPV Vaccines Completed 11/14/2019, 05/17, 07/21/2011, Additional history exists Influenza Vaccine Completed 12/03/2023, , 11/19/2022, Additional history exists Pneumococcal Vaccine: Pediatrics (0 to 5 Years) and At-Risk Patients (6 to 49) Years) Aged Out No longer eligible based on patient's age to complete this topic RSV under 20 months Aged Out No longe r eligible based on patient's age to complete this topic Rotavirus Vaccines Aged Out No longer eligible based on patient's age to complete this topic Procedures Procedure Name Priority Date/Time Associated Diagnosis Comments 30 O RESIN-BASED COMPOSITE - 1 SURF, POSTERIOR Routine 05/31/2024 1:00 PM EDT 28 DO RESIN-BASED COMPOSITE - 2 SURF, POSTERIOR Routine 05/31/2024 1:00 PM EDT CASE PRESENTATION, DETAILED AND EXTENSIVE TREATMENT PLANNING Routine 05/31/2024 1:00 PM EDT PROPHYLAXIS - ADULT Routine 12/30/2023 2 :00 PM EST INTRAORAL - COMPLETE SERIES OF RADIOGRAPHIC IMAGES Routine 12/30/2023 2:00 PM EST PERIODIC ORAL EVALUATION - ESTABLISHED PATIENT Routine 12/30/2023 2:00 PM EST from Last 3 Months or Most Recently Relevant to Health Maintenance Insurance [employer] [facility] - [facility] PARTIAL (MEDICAID) Care Teams Principal Clerk Relationship Specialty Start Date End Date Juanita Albarran MD [address] [place] [id number] PCP - General Family Medicine 10/16/20
--- OUTSIDE RECORDS SUMMARY | 2024-06-21 15:55 | XMS_ITS | Patient Health Record ---
Author Organization [facility] Address [address] [place] [phone] Care Team Providers Care Director Design Name Role Phone CHAYA ADHIKARI Unavailable [phone] MALISSAKIRT Unavailable [phone] [place] Preston Unavailable [phone] Allergies No Known Allergies Results Component Value Reference Range Notes Chlamydia/GC Amplification-1 [id number] Reviewed date:11/08/2023 12:18:35 PM Interpretation:Negative Performing Lab:[facility], [address], [address], [place], Phone - [phone], Director - [facility] Notes/Report: Clinical Information:SRC: ORAL SRC: VAG Chlamydia trachomatis, SCOT Negative Negative Neisseria gonorrhoeae, SCOT Negative Negative Trich vag by SCOT-[id number] Reviewed date:11/08/2023 12:18:45 PM Interpretation:Negative Performing Lab:[facility], [address], [address], [place], Phone - [phone], Director - [facility] Notes/Report: Clinical Information:SRC: ORAL SRC: VAG Trich vag by SCOT Negative Negative Ct/GC SCOT, Pharyngeal-[id number] Reviewed date:11/04/2023 04:20:07 PM Interpretation:Negative Performing Lab:[facility], [address], [address], [place], Phone - [phone], Director - [facility] Notes/Report: Clinical Information:SRC: ORAL SRC: VAG C. trachomatis, SCOT, Pharyn Negative Negative N. gonorrhoeae, SCOT, Pharyn Negative Negative Pap IG (Image Guided)-[id number] Reviewed date:11/08/2023 03:34:58 PM Interpretation:Normal Performing Lab:[facility], [address], [address], [place], Phone - [phone], Director - [facility] Notes/Report: Clinical Information:[id number] No. of containers..01 ThinPrep Vial DIAGNOSIS: NEGATIVE FOR INTRAEPITHELIAL LESION OR MALIGNANCY. PREDOMINANCE OF COCCOBACILLI CONSISTENT WITH SHIFT IN VAGINAL ANNETTE IS PRESENT. Specimen adequacy: Satisfact ory for evaluation. Clinician provided ICD10: Z12.4 Performed by: Milla macario, Thermal Technician (ASCP) . . Note: The Pap smear is [...] Report Reviewed date:11/08/2023 03:35:13 PM Interpretation:Reviewed Performing Lab:[facility], [address], [address], [place], Phone - [phone], Director - [facility] Notes/Report: Clinical Information:[id number] No. of containers..01 ThinPrep Vial Wet Mount Reviewed date:05/22/2024 05:31:19 PM Interpretation:BV Performing Lab: Notes/Report: BV Clue Cells pos WBC few Hyphae neg Trichomonas none pH 5.5 IRMA Prep pos whiff HBsAg Screen-[id number] Reviewed date:05/23/2024 12:23:09 PM Interpretation:Negative Performing Lab:[facility], [address], [address], [place], Phone - [phone], Director - [facility] Notes/Report: Clinical Information:SRC: VAGINAL HBsAg Screen Negative Negative Hepatitis B Surf Ab Quant-00 [id number] Reviewed date:05/23/2024 12:23:27 PM Interpretation:Immune Performing Lab:[facility], [address], [address], [place], Phone - [phone], Director - [facility] Notes/Report: Clinical Information:SRC: VAGINAL Hepatitis B Surf Ab Quant 21.0 Immunity>10 mIU/mL Status of Immunity Anti-HBs Level Inconsistent with Immunity 0.0 - 10.0 Consistent with Immunity >10.0 T pallidum Screening Hodgeman -[id number] Reviewed date:05/23/2024 12:22:57 PM Interpretation:Negative Performing Lab:[facility], [address], [address], [place], Phone - [phone], Director - [facility] Notes/Report: Clinical Information:SRC: VAGINAL T pallidum Antibodies Non Reactive Non Reactive HIV Ab/p24 Ag with Reflex-08 [id number] Reviewed date:05/23/2024 12:23:03 PM Interpretation:Negative Performing Lab:[facility], [address], [address], [place], Phone - [phone], Director - [facility] Notes/Report: Clinical Information:SRC: VAGINAL HIV Ab/p24 Ag Screen Non Reactive Non Reactive HIV-1/HIV-2 antibodies and HIV-1 p24 antigen were NOT detected. There is no laboratory evidence of HIV infection. HIV Negative HCV Antibody RFX to Quant PC [id number] Reviewed date:05/23/2024 12:23:15 PM Interpretation:Negative Performing Lab:[facility], [address], [address], [place], Phone - [phone], Director - [facility] Notes/Report: Clinical Information:SRC: VAGINAL Clinical Information:SRC: VAGINAL HCV Ab Non Reactive Non Reactive Interpretation: Not infected with HCV unless early or acute infection is suspected (which may be delayed in an immunocompromised individual), or other evidence exists to indicate HCV infection. Ct, Ng, Trich vag by SCOT-[id number] Reviewed date:05/23/2024 06:20:54 PM Interpretation:Negative Performing Lab:[facility], [address], [address], [place], Phone - [phone], Director - [facility] Notes/Report: Clinical Information:SRC: VAGINAL Chlamydia by SCOT Negative Negative Gonococcus by SCOT Negative Negative Trich vag by SCOT Negative Negative Reason For Referral No Information Medications Medication SIG (Take, Route, Frequency, Duration) Notes Start Date End Date Status 03/06 1-20 MG-MCG 1 tablet Orally Once a day for 365 days please fill 1 year supply per [place] access act thank you! Not-Taking metroNIDAZOLE 500 MG 1 tablet Orally Twice a day, every 12 hours for 7 days 05/22/2024 Active Aftera 1.5 MG as directed Orally one for 1 days 05/22/2024 Active Social History Sex Assigned At : Social History Observation Description Sex Assigned At Female Problems Problem Type SNOMED Code ICD Code Onset Dates Problem Status W/U Status Risk Notes Problem Menstrual disorder (272376172) Irregular menses (N92.6) Active confirmed Vital Signs Blood pressure diastolic 65 mm Hg 05/22/2024 Height 61 in 05/22/2024 Blood pressure systolic 100 mm Hg 05/22/2024 Weight 173.7 lbs 05/22/2024 BMI 32.82 kg/m2 05/22/2024 Encounters Encounter Location Date Provider Diagnosis [address] [id number] 08/24/2023 Preston Engel Encounter for surveillance of contraceptives, unspecified Z30.[address] [id number] 11/03/2023 CHAYA ADHIKARI Encounter for gynecological examination (general) (routine) without abnormal findings Z01.419 ; Routine Pap Screening Z12.4 ; Encounter for screening for infections with a predominantly sexual mode of transmission Z11.3 and Counseling/Contraceptiv e Advice Z30.[address] [place], [place] [phone] 05/22/2024 KIRTJEANE LEONARDO Encounter for screen ing for infections with a predominantly sexual mode of transmission Z11.3 ; Encounter for other general counseling and advice on contraception Z30.09 ; Acute vaginitis N76.0 ; Encounter for screening for other infectious and parasitic diseases Z11.8 ; Encounter for screening for human immunodeficiency virus [HIV] Z11.4 and Encounter for screening for other viral diseases Z11.[address] [id number] 08/17/2023 CHAYA ADHIKARI Assessments Encounter Date Diagnosis (ICD Code) Assessment Notes Treatment Notes Treatment Clinical Notes Section Notes 08/24/2023 Encounter for surveillance of contraceptives, unspecified (ICD-10 - Z30.40) Reviewed med education and what to do with missed pills Date of next annual: has been doing at [facility] previously, plans to schedule next annual at [facility] 11/03/2023 Encounter for gynecological examination (general) (routine) without abnormal findings (ICD-10 - Z01.419) Annual exam with Pap per protocol No sxs reported Vaginal swab collected and sent Happy with oc Rx,no C/Is to continued use Urged 100% safer sex /condoms Visit documented . 11/03/2023 Routine Pap Screening (ICD-10 - Z12.4) 05/22/2024 Encounter for screening for infections with [...] Risk Document low risk of morbidity/mor tality 11/03/2023 Encounter for screening for infections with a predominantly sexual mode of transmission (ICD-10 - Z11.3) 11/03/2023 Counseling/Contrace ptive Advice (ICD-10 - Z30.09) 05/22/2024 Encounter for screening for other infectious [...] Risk Document low risk of morbidity/mor tality 08/24/2023 Other 11/03/2023 Other Discussed STI risks, screening, and safe sex Plan Of Treatment No Information Insurance Providers Payer Name Payer Address Payer Phone Subscriber Number Group Number Insured Name Patient Relationship to Insured Coverage Start Date Coverage End Date [facility] [employer] [address] [address] [place], [place] [id number] Tish Alfaro Self - patient is the insured Medical (General) History Medical History History ICD Code GC ,in the past,reported ,not dx'd and t x'd at [facility] ,negative aptimas since BV ,yeast ,dx'd at [facility] on [facility] ,tx' d Surgical History Surgery Date(Month/Year)
[2024-06-22 04:39] LABS: HBS Num1 11.96 mIU/mL (0-7.99); HBc Num1 0.13 S/CO (0.00-0.79); HBsAGNum1 0.27 S/CO (0.00-0.99); Hepatitis B Core Antibody Nonreactive (Nonreactive); Hepatitis B Surface Antigen Negative (Negative)
[2024-06-22 05:17] LABS: HBS Num2 12.44 mIU/mL (0-7.99)
[2024-06-22 05:18] LABS: HBS Num3 13.07 mIU/mL (0-7.99); ~Hepatitis B Surface Antibody REACTIVE (Nonreactive)
[2024-06-23 22:47] LABS: TS Negative Control Passed; TS Panel A 1; TS Panel B 5; TS Positive Control Passed; TSpotTB Borderline (Negative)
== END 2024-06-21 14:48 | disposition home or self-care (01) ==
LOC: HO.CHCLDS 14:47
PROVIDERS: Visit Provider Family Medicine
DX: Z13.9 Encounter for screening, unspecified (principal)
CPT/HCPCS: 36415; 86481; 86704; 86706; 87340

== ENCOUNTER 2024-06-28 11:41 | Outpatient (REF) | payer SELFPAY ==
--- OUTSIDE RECORDS SUMMARY | 2024-06-28 12:34 | XMS_ITS | Encounter Summary ---
Author Organization [employer] Address [address] [facility] 7[address] [place] [address] Care Team Providers Care Java Integration Developer Name Role Phone Juanita Albarran MD Primary Care Provider [phone] Reason for Visit * Reason Onset Date Comments Results 06/28/2024 Encounter Details Date Type Department Care Team ([facility] Contact Info) Description 06/28/2024 Results Follow-Up [facility] [address] [place], [place] [phone] Wing Leiva RN T-SPOT??.TB, Hepatitis B Surface Antibody, Qualitative, Hepatitis B surface antigen, EIA, Hepatitis B Core Antibody, Total Social History Tobacco Use Types Packs/Day Years [...] encounter Miscellaneous Notes * Telephone Encounter - Wing Abbie RN - 06/28/2024 11:11 AM EDT Tc from pt, informed pt about need to repeat TB test and that the Hep B labs showed that she was immune. Pt verbalized understanding and agreement with plan. * Telephone Encounter - Wing Abbie RN - 06/28/2024 9:16 AM EDT Tc to pt regarding need to repeat TB blood test. Unable to reach pt, left message to call back. ----- Message from Juanita Albarran MD sent at 06/27/2024 9:38 AM EDT ----- A borderline test result means the test did not provide useful information about the likelihood of TB infection. Repeating a TB blood test. documented in this encounter Plan of Treatment Not on file documented as of this encounter Visit Diagnoses Not on filedocumented in this encounter Additional Health Concerns Assessment Noted Time PHQ-9 Depression Total Score: 3 05/27/19 25 2:31 PM EDT documented as of this encounter Care Teams Java Integration Developer Relationship Specialty Start Date End Date Juanita Albarran MD [address] [place] [address] PCP - General Family Medicine 10/16/20 documented as of this encounter
--- OUTSIDE RECORDS SUMMARY | 2024-06-28 12:34 | XMS_ITS | Encounter Summary ---
Author Organization [facility] Address [address] [place] [phone] Phone Care Team Providers Care Legislative Assistant Name Role Phone Unavailable Primary Care Provider Unavailabl e Encounter Details Date Type Department Care Team (Late st Contact Info) Description 05/10/2015 Documentation [facility] [place] [address] Family Medicine, Physician [address] [place], [place] [address] Social History Tobacco Use Types Packs/Day Years [...]
--- OUTSIDE RECORDS SUMMARY | 2024-06-28 12:34 | XMS_ITS | Clinical Summary ---
Author Organization [facility] Address [address] [place] [phone] Phone Care Team Providers Care Financial Assistance Specialist Name Role Phone Unavailable Primary Care Provider [...] complete this topic Procedures * Due to [place] law, this organization might not be sharing sensitive test results. Procedure Name Priority Date/Time Associated Diagnosis Comments CHLAMYDIA AND GONORRHEA, AMPLIFIED Routine 11/03/2017 2:20 PM EDT Screen for sexually transmitted diseases from Last 3 Months or Most Recently Relevant to Health Maintenance Results * Due to [place] law, this organization might not be sharing sensitive test results. * Chlamydia and Gonorrhoea, Amplified (11/03/2017 2:20 PM EDT) Chlamydia Trachomatis, DNA Probe NEGATIVE (NEG) [facility] Comment: No Chlamydia Trachomatis RNA detected in this patient's sample ? (REFERENCE RANGE/NORMAL VALUE: NOT DETECTED) ? Note: This test uses transcription typist- mediated amplification method to detect rRNA from C. Trachomatis URINE GC AMP PROBE NEGATIVE (NEG) [facility] Comment: No Neisseria Gonorrhoeae RNA detected in this patient's sample ? (REFERENCE RANGE/NORMAL VALUE: NOT DETECTED) ? NOTE: This test uses transcription typist-mediated amplification method to detect rRNA from N.Gonorrhoeae. [...] without risk of sexual abuse. Consult the [facility] if needed. Contact phone number . Therapeutic failure or success cannot be determined with the Aptima Combo2 assay since nucleic acid may persist following appropriate antimicrobial therapy. The Centers for Disease Control and Prevention (CDC) recommends confirmatory retesting using culture or a different nucleic acid amplification test when positive results occur, if indicated. Testing performed or reported by [facility], a Service of [facility], [facility] [address], [place] [address] CLIA [id number] Pascual Loaiza MD, Sports Bookmaker Urine 11/03/2017 2:20 PM EDT 11/03/2017 10:11 PM EDT us Toya Youngblood MD LAB MICROBIOLOGY - GENERAL ORD ERABLES Final Result [facility] from Last 3 Months or Most Recently Relevant to Health Maintenance
--- OUTSIDE RECORDS SUMMARY | 2024-06-28 12:34 | XMS_ITS | Encounter Summary ---
Author Organization [facility] Address [address] [place] [address] Phone Care Team Providers Care Outboard Motors Experimental Mechanic Name Role Phone Unavailable Primary Care Provider Unavailabl e Encounter Details Date Type Department Care Team (Late st Contact Info) Description 06/07/2013 Documentation [facility] Family Medicine [facility] [place] [address] Family Medicine, Physician [address] [place], [place] [address] Social History Tobacco Use Types Packs/Day Years [...]
--- OUTSIDE RECORDS SUMMARY | 2024-06-28 12:34 | XMS_ITS | Encounter Summary ---
Author Organization [facility] Address [address] [place] [address] Phone Care Team Providers Care Jeep Driver Name Role Phone Unavailable Primary Care Provider Unavailabl e Encounter Details Date Type Department Care Team (Late st Contact Info) Description 06/02/2013 Documentation [facility] Family Medicine [facility] [place] [address] Family Medicine, Physician [address] [place], [place] [address] Social History Tobacco Use Types Packs/Day Years [...]
--- OUTSIDE RECORDS SUMMARY | 2024-06-28 12:34 | XMS_ITS | Clinical Summary ---
Author Organization [employer] Address [address] [place] [address] Care Team Providers Care Violin Mechanic Name Role Phone Ivana Youngblood MD Primary Care Provider [phone] Surgical History Surgery Date Site/Laterality Comments OTHER [...] RESULTING AGENCY - 11/16/2019 3:05 PM EDT [id number] THINPREP PAP, IMAGED: NEGATIVE FOR SQUAMOUS INTRAEPITHELIAL [...] Recently Relevant to Health Maintenance Care Teams Violin Mechanic Relationship Specialty Start Date End Date Ivana Youngblood MD [address] [facility] [place], [place] [address] PCP - General Pediatrics 07/06/18
--- OUTSIDE RECORDS SUMMARY | 2024-06-28 12:34 | XMS_ITS | Encounter Summary ---
Author Organization [employer] Address [address] [facility] 7t [place] [address] Care Team Providers Care Climbing Guide Name Role Phone Juanita Albarran MD Primary Care Provider [phone] Reason for Visit * Reason Onset Date Comments Lab Orders 03/20/2022 Encounter Details Date Type Department Care Team ([facility] st Contact Info) Description 03/20/2022 Telephone [facility] MEDICINE [address] [place] [address] Juanita Albarran MD [address] [place] [address] Lab Orders Social History Tobacco Use Types [...] getting a screening. Please contact pt at [phone] * Telephone Encounter - Juanita Albarran MD [...] a order for tb shot done at [facility] Please contact pt at [phone] documented in this encounter Plan of Treatment Scheduled Orders Name Type Priority Associated Diagnoses Orde r Schedule QuantiFERON??-TB Gold Plus, 1 Tube Lab Routine Tuberculosis screening Expected: 03/20/2022 (Approximate), Expires: 03/20/2023 documented as of this encounter Visit Diagnoses Diagnosis Tuberculosis screening- Primary Screening examination for pulmonary tuberculosis documented in this encounter Care Teams Climbing Guide Relationship Specialty Start Date End Date Juanita Albarran MD [address] [place] [address] PCP - General Family Medicine 10/16/20 documented as of this encounter
--- OUTSIDE RECORDS SUMMARY | 2024-06-28 12:34 | XMS_ITS | Data Portability ---
Author Organization [facility] Address [address] [place] [address] Assessment No assessment recorded. Plan of Treatment Reminders Order Date Submit Date Provider Last Modified By Organization Details Last Modified Time Details Appointments None recorded. Lab urinalysis, dipstick 2022 023 honeyCharo [facility], [address] [place] [address], [place], [address], 3 19:43:16 test, urine 2022 023 [facility], [address] [place] [address], [place], [address], 3 19:43:17 culture, urine [address] [facility], [address] [place] [address], [address], 3 16:06:17 vaginal pathogens panel, SCOT+probe, vaginal fluid [address] [facility] [facility], [address] [place] [address], [address], 3 20:06:14 Referral None recorded. Procedures None recorded. Surgeries None recorded. Imaging None recorded. Medication Orders doxycycline hyclate 100 mg tablet 2022 023 [email or web address] [facility][id number], [address] [facility], [place], [address], 19:43:17 ceftriaxone 1 gram solution for injection 2022 023 [email or web address] Not available 19:43:17 fluconazole 150 mg tablet 2022 023 [email or web address] [facility][id number], [address] [place] [address], [address], 19:43:17 Patient TargetsNo targets recorded. Patient Instructions Encounter Date Encounter Id Patient Instructions Last Modified By Organization Details Last Modified Time 03/06/2022 [id number] We recommend you get a repeat urinalysis [...] and any other testing not performed by [facility] should be notified and testing should occur as well if concerns exist. Not available 03/06/2022 19:34:57 Reason for Referral None Reported. Results Created Date Observation Date Name Description Value Unit Range Abnormal Flag Note LastModifiedBy Organization Detail LastModifiedTime 03/06/19 23 03/10/2022 URINE CULTU RE, ROUTI NE urine culture, routine FINAL REPORT Not Available [facility] ([facility]) [address] [facility], [place], [address], 03/10/2022 16:06:57 03/06/19 23 03/10/2022 URINE CULTU RE, ROUTI NE result 1 LACTOB ACILLU S SPECIE S 25,00 0-50, 000 colon y formi ng units per mL Susce ptibi lity not damion lly perfo rmed on this organ ism. Not Available [facility] ([facility]) [address] [place], [address], 03/10/2022 16:06:57 03/06/19 23 03/11/2022 NUSWA B VAGIN ITIS PLUS (VG+) trich vag by SCOT NEGATI VE negati ve Not Available [facility] ([facility]) [address] [place], [address], 03/12/2022 20:06:14 03/06/19 23 03/11/2022 NUSWA B VAGIN ITIS PLUS (VG+) chlamydia trachomatis, SCOT NEGATI VE negati ve Not Available [facility] ([facility]) [address] [place], [address], 03/12/2022 20:06:14 03/06/19 23 03/11/2022 NUSWA B VAGIN ITIS PLUS (VG+) neisseria gonorrhoeae, SCOT NEGATI VE negati ve Not Available [facility] ([facility]) [address] [place], [address], 03/12/2022 20:06:14 03/06/19 23 03/12/2022 NUSWA B VAGIN ITIS PLUS (VG+) atopobium vaginae LOW - 0 score Not Available [facility] ([facility]) [address] [place], [address], 03/12/2022 20:06:14 03/06/19 23 03/12/2022 NUSWA B VAGIN ITIS PLUS (VG+) bvab 2 LOW - 0 score Not Available [facility] ([facility]) [address] [facility], [place], [address], 03/12/2022 20:06:14 03/06/19 23 03/12/2022 NUSWA B [...] Drug Admin istra tion. Not Available [facility] ([facility]) [address] [facility], [place], [address], 03/12/2022 20:06:14 03/06/19 23 03/12/2022 NUA B VAGIN ITIS PLUS (VG+) chance albicans, SCOT POSITI VE negati ve abnormal Not Available [facility] ([facility]) [address] [facility], [place], [address], 03/12/2022 20:06:14 03/06/19 23 03/12/2022 NUA B VAGIN ITIS PLUS (VG+) chance glabrata, SCOT NEGATI VE negati ve Not Available [facility] ([facility]) [address] [facility], [place], [address], 03/12/2022 20:06:14 03/06/19 23 03/06/2022 urina lysis , dipst ick Unknown Analyte Normal = light yellow Not Available [facility], [place], [address], 03/06/2022 19:05:41 03/06/19 23 03/06/2022 urina lysis , dipst ick Unknown Analyte Yellow Not Available [facility] [address], [place], [address], 03/06/2022 19:05:41 03/06/19 23 03/06/2022 urina lysis , dipst ick Unknown Analyte Normal = clear Not Available carmen parra [address], [place], [address], 03/06/2022 19:05:41 03/06/19 23 03/06/2022 urina lysis , dipst ick Unknown Analyte Clear Not Available [address], [place], [address], 03/06/2022 19:05:41 03/06/19 23 03/06/2022 urina lysis , dipst ick Unknown Analyte Normal = negati ve Not Available carmen parra [address], [place], [address], 03/06/2022 19:05:41 03/06/19 23 03/06/2022 urina lysis , dipst ick Unknown Analyte Negati ve Not Available carmen parra [address], [place], [address], 03/06/2022 19:05:41 03/06/19 23 03/06/2022 urina lysis , dipst ick Unknown Analyte Normal = Negati ve Not Available carmen parra [address], [place], [address], 03/06/2022 19:05:41 03/06/19 23 03/06/2022 urina lysis , dipst ick Unknown Analyte Negati ve Not Available carmen parra [address], [place], [address], 03/06/2022 19:05:41 03/06/1903/06/2022 urina lysis , dipst ick Unknown Analyte Normal = Negati ve Not Available carmen parra [address], [place], [address], 03/06/2022 19:05:41 03/06/19 23 03/06/2022 urina lysis , dipst ick Unknown Analyte Trace Not Available [facility] [address], [place], [address], 03/06/2022 19:05:41 03/06/19 23 03/06/2022 urina lysis , dipst ick Unknown Analyte Normal = 1.010, 1.015, 1.020 Not Available carmen parra [address], [place], [address], 03/06/2022 19:05:41 03/06/19 23 03/06/2022 urina lysis , dipst ick Unknown Analyte 1.025 Not Available b[facility] [address], [place], [address], 03/06/2022 19:05:41 03/06/19 23 03/06/2022 urina lysis , dipst ick Unknown Analyte Normal = Negati ve Not Available carmen parra [address], [place], [address], 03/06/2022 19:05:41 03/06/19 23 03/06/2022 urina lysis , dipst ick Unknown Analyte Modera te Not Available carmen parra [address], [place], [address], 03/06/2022 19:05:41 03/06/19 23 03/06/2022 urina lysis , dipst ick Unknown Analyte Normal = 6.5, 7.0, 7.5, 8.0 Not Available carmen parra [address], [place], [address], 03/06/2022 19:05:41 03/06/19 23 03/06/2022 urina lysis , dipst ick Unknown Analyte 5.5 Not Available [address], [place], [address], 03/06/2022 19:05:41 03/06/19 23 03/06/2022 urina lysis , dipst ick Unknown Analyte Normal = Negati ve Not Available carmen parra [address], [place], [address], 03/06/2022 19:05:41 03/06/19 23 03/06/2022 urina lysis , dipst ick Unknown Analyte Negati ve Not Available [facility] [address], [place], [place], [address], 03/06/2022 19:05:41 03/06/19 23 03/06/2022 urina lysis , dipst ick Unknown Analyte Normal = 0.2, 1.0 Not Available [facility] [address], [place], [address], 03/06/2022 19:05:41 03/06/19 23 03/06/2022 urina lysis , dipst ick Unknown Analyte 0.2 E.U./d L Not Available [facility] [address], [place], [address], 03/06/2022 19:05:41 03/06/19 23 03/06/2022 urina lysis , dipst ick Unknown Analyte Normal = Negati ve Not Available [address], [place], [address], 03/06/2022 19:05:41 03/06/19 23 03/06/2022 urina lysis , dipst ick Unknown Analyte Negati ve Not Available [address] par[address], [place], [address], 03/06/2022 19:05:41 03/06/19 23 03/06/2022 urina lysis , dipst ick Unknown Analyte Normal = Negati ve Not Available [facility] [address], [place], [address], 03/06/2022 19:05:41 03/06/19 23 03/06/2022 urina lysis , dipst ick Unknown Analyte Small Not Available [address] [place] [address], [place], [address], 03/06/2022 19:05:41 03/06/19 23 03/06/2022 pregn natali test, urine Unknown Analyte Normal = Negati ve Not Available [address] [place] [address], [place], [address], 03/06/2022 19:05:42 03/06/19 23 03/06/2022 pregn natali test, urine Unknown Analyte negati ve Not Available [address] [place] [address] [place], [address], 03/06/2022 19:05:42 Result Notes None recorded. Problems Name Problem SNOMED Code Status Onset Date Resolution Date Notes Provider Name and Address Organization Details Recorded Time Eczema 46541262 Active 03/06/19 SHANTE Munoz [facility] 03/06/2022 [...] Updated DateTime 03/06/2022 154.94 cm 32.7 kg/m2 32038.48 g Sheba FREY [employer] 03/06/2022 19:06:08 Date Recorded Oxygen saturation Oxygen saturation in Arterial blood by Pulse oximetry Heart rate Respiratory rate Body temperature Systolic blood pressure Diastolic blood pressure Provider Name and Address Organization Details Last Updated DateTime 100 % 100 % 72 /min 18 /min 98.7 [degF] 108 mm[Hg] 71 mm[Hg] TIEN [facility] 19:25:45 Social History Question Answer Notes LastModified by Organizat ion Details LastModified Time Tobacco Smoking Status Never Smoker Sheba hull PA [facility] 03/06/2022 19:07:07 Have You Had Direct Contact, Or Contact During Intimacy, With Monkeypox Rash, Scabs, Or Body Fluids From A Person With Monkeypox? No Information not available 03/06/2022 Have You Recently Traveled Abroad? No Information not available 03/06/2022 Sex: Unknown Functional Status Question Answer Note LastModified by Organizat ion Details LastModified Time Do you use any illicit or recreational drugs? No Information not available 03/06/2022 Do you or have you ever used any other forms of tobacco or nicotine? No Information not available 03/06/2022 What is your level of alcohol consumption? None Information not available 03/06/2022 Mental Status None recorded. Family History Relationship [...] Details Recorded Time Tdap 1 completed Sheba [place] null, [place] - [facility] 03/06/2022 19:06:24 MMR 9 completed Sheba Alejandra null, PA - [facility] 03/06/2022 19:06:24 HPV9 2 completed Sheba Alejandra null, PA - [facility] 03/06/2022 19:06:24 COVID-19, mRNA, LNP-S, PF, 30 mcg/0.3 mL dose 1 completed Sheba [place] null, PA - [facility] 03/06/2022 19:06:24 Hep A, ped/adol, 2 dose 6 completed Sheba [place] null, PA - [facility] 03/06/2022 19:06:24 COVID-19, mRNA, LNP-S, PF, 30 mcg/0.3 mL dose, mary ann-sucrose 2 completed Sheba Alejandra null, PA - [facility] 03/06/2022 19:06:24 Hep B, adult 8 completed Sheba Alejandra null, PA - [facility] 03/06/2022 19:06:24 Hep B, adult 9 completed Sheba [place] null, PA - [facility] 03/06/2022 19:06:24 MMR 8 completed Sheba [place] null, PA - [facility] 03/06/2022 19:06:24 HPV, unspecified formulation 8 completed Sheba Alejandra null, PA - [facility] 03/06/2022 19:06:24 Influenza, split virus, quadrivalent, PF 7 completed Sheba [place] null, PA - [facility] 03/06/2022 19:06:24 rabies, intramuscular injection 7 completed Sheba [place] null, PA - [facility] 03/06/2022 19:06:24 HPV9 0 completed Sheba Alejandra null, PA - [facility] 03/06/2022 19:06:24 Influenza, split virus, trivalent, preservative 6 completed Sheba Alejandra null, PA - [facility] 03/06/2022 19:06:24 Influenza, split virus, quadrivalent, PF 8 completed Sheba [place] null, PA - [facility] 03/06/2022 19:06:24 Hep A, ped/adol, 2 dose 7 completed Sheba [place] null, PA - [facility] 03/06/2022 19:06:24 Hep B, adolescent or pediatric 8 completed Sheba Alejandra null, PA - [facility] 03/06/2022 19:06:24 Influenza, split virus, quadrivalent, PF 1 completed Sheba Alejandra null, PA - [facility] 03/06/2022 19:06:24 MMR 3 completed Sheba Alejandra null, PA - [facility] 03/06/2022 19:06:24 Hep B, unspecified formulation 9 completed Sheba Alejandra null, PA - [facility] 03/06/2022 19:06:24 COVID-19, mRNA, LNP-S, PF, 30 mcg/0.3 mL dose 1 completed Sheba Alejandra null, PA - [facility] 03/06/2022 19:06:24 meningococcal MCV4P 7 completed Sheba Alejandra null, PA - [facility] 03/06/2022 19:06:24 Influenza, split virus, quadrivalent, preservative 6 completed Sheba Alejandra null, PA - [facility] 03/06/2022 19:06:24 Past Encounters Encounter ID Performer Location Encounter Start Date Encounter Closed Date Diagnosis/Indication Diagnosis SNOMED-CT Code Diagnosis ICD10 Code Diagnosis Note [id number] [facility] [place] [address] 08/31/2018 15:45:33 08/31/2018 17:01:25 [id number] [address] [address] [address] [place] [address] 08/22/2020 17:19:18 08/22/2020 19:06:09 [id number] [address] [address] [address] [place] [address] 10/06/2020 16:24:56 10/06/2020 17:59:45 [id number] [address] [address] [address] [place] [address] 06/03/2018 15:52:46 06/03/2018 16:30:33 [id number] [address] [address] [address] [place] [address] 09/01/2018 14:44:50 09/01/2018 15:48:18 [id number] [address] [facility] [address] [place] [address] 12/04/2019 11:33:03 12/04/2019 13:35:39 [id number] [place] Rad[place] [address] [address] [place] [address] 03/06/2022 18:54:40 03/06/2022 19:50:19 Urethritis 31944530 N34.2 Vaginitis 63104259 N76.0 Health Concerns Section Related Observation LastModified by Organization Detai ls LastModified Time None Recorded Concern Status LastModified by Organization Details LastModified Time None Recorded Advance Directives Directive None Recorded Payers Insurance Date Sequence Insurance Name Policy Number Policy Sinclair Covered Member ID Sinclair Member ID Guarantor Name 03/06/2022 1 [employer]UE [employer]EFIT [employer] OF [facility] Tish Angelina [id number] Tish Angelina 03/06/2022 2 [place] [facility] Tish Angelina [id number] Tish Angelina Notes Date Note Type Note Provider Name and Address Organization Details Recorded Time 03/06/2022 text/html Urinary Complain t FemaleReported bypatient.Notes:vagi nal itching 2x days. Also burning with urination. worried about STD and unprotected sexual encounter. Leonard Radford NP [address] [place], [address], [place] - [facility] 03/06/2022 19:43:23 OBGyn Episode No OBEpisode recorded.
--- OUTSIDE RECORDS SUMMARY | 2024-06-28 12:34 | XMS_ITS | Encounter Summary ---
Author Organization [facility] Address [address] [place] [address] Phone Care Team Providers Care Production Analyst Name Role Phone Unavailable Primary Care Provider Unavailabl e Encounter Details Date Type Department Care Team (Late st Contact Info) Description 10/01/2016 Conversion Encounter [facility] - [address] [address] Social History Tobacco Use Types Packs/Day Years [...]
--- OUTSIDE RECORDS SUMMARY | 2024-06-28 12:35 | XMS_ITS | Encounter Summary ---
Author Organization [employer] Address [address] [facility] 7t [place] [address] Care Team Providers Care Brand Engineer Name Role Phone Juanita Albarran MD Primary Care Provider [phone] Reason for Visit * Reason Onset Date Comments Nurse Triage 03/15/2024 Encounter Details Date Type Department Care Team ([facility] st Contact Info) Description 03/15/2024 Telephone [facility] [address] [place], [place] [phone] Juanita Albarran MD [address] [place] [address] Nurse Triage Social History Tobacco Use Types [...] a vaginal yeast infection (i.e., white, thick, vitwhmd-jjjkvr-thjc, itchy, not bad smelling discharge) * All [...] on filedocumented in this encounter Care Teams Brand Engineer Relationship Specialty Start Date End Date Juanita Albarran MD [address] [place] [address] PCP - General Family Medicine 10/16/20 documented as of this encounter
--- OUTSIDE RECORDS SUMMARY | 2024-06-28 12:35 | XMS_ITS | Patient Health Record ---
Author Organization [facility] Address [address] [place] [phone] Care Team Providers Care Barrel Roller Operator Name Role Phone CHAYA ADHIKARI Unavailable [phone] ISHAKIRT Rodas Unavailable [phone] DahindaPreston aguilar Unavailable [phone] Allergies No Known Allergies Results Component Value Reference Range Notes Pap IG (Image Guided)-[id number] Reviewed date:11/08/2023 03:34:58 PM Interpretation:Normal Performing Lab:Chris Brooks, [address], [address], [place], Phone - [phone], Director - [facility] Notes/Report: Clinical Information:[id number] No. of containers..01 ThinPrep Vial DIAGNOSIS: NEGATIVE FOR INTRAEPITHELIAL LESION OR MALIGNANCY. PREDOMINANCE OF COCCOBACILLI CONSISTENT WITH SHIFT IN VAGINAL ANNETTE IS PRESENT. Specimen adequacy: Satisfact ory for evaluation. Clinician provided ICD10: Z12.4 Performed by: Milla macario, Extruder Operator Multiple (ASCP) . . Note: The Pap smear [...] the use of an image guided system. Ct/GC SCTO, Pharyngeal-[id number] Reviewed date:11/04/2023 04:20:07 PM Interpretation:Negative Performing Lab:[facility] [place], [address], [address], [place], Phone - [phone], Director - [facility] Notes/Report: Clinical Information:SRC: ORAL SRC: VAG C. trachomatis, SCOT, Pharyn Negative Negative N. gonorrhoeae, SCOT, Pharyn Negative Negative Trich vag by SCOT-[id number] Reviewed date:11/08/2023 12:18:45 PM Interpretation:Negative Performing Lab:[facility] [place], [address], [address], [place], Phone - [phone], Director - [facility] Notes/Report: Clinical Information:SRC: ORAL SRC: VAG Trich vag by SCOT Negative Negative Chlamydia/GC Amplification-1 27512 Reviewed date:11/08/2023 12:18:35 PM Interpretation:Negative Performing Lab:[facility] [place], [address], [address], [place], Phone - [phone], Director - [facility] Notes/Report: Clinical Information:SRC: ORAL SRC: VAG Chlamydia trachomatis, SCOT Negative Negative Neisseria gonorrhoeae, SCOT Negative Negative PDF Report Reviewed date:11/08/2023 03:35:13 PM Interpretation:Reviewed Performing Lab:[facility] [place], [address], [address], [place], Phone - [phone], Director - [facility] Notes/Report: Clinical Information:[id number] No. of containers..01 ThinPrep Vial Wet [place] Reviewed date:05/22/2024 05:31:19 PM Interpretation:BV Performing Lab: Notes/Report: BV Clue Cells pos WBC few Hyphae neg Trichomonas none pH 5.5 IRMA Prep pos whiff HBsAg Screen-[id number] Reviewed date:05/23/2024 12:23:09 PM Interpretation:Negative Performing Lab:[facility] [place], [address], [address], [place], Phone - [phone], Director - [facility] Notes/Report: Clinical Information:SRC: VAGINAL HBsAg Screen Negative Negative Hepatitis B Surf Ab Quant-00 6530 Reviewed date:05/23/2024 12:23:27 PM Interpretation:Immune Performing Lab:[facility] [place], [address], [address], [place], Phone - [phone], Director - [facility] Notes/Report: Clinical Information:SRC: VAGINAL Hepatitis B Surf Ab Quant 21.0 Immunity>10 mIU/mL Status of Immunity Anti-HBs Level Inconsistent with Immunity 0.0 - 10.0 Consistent with Immunity >10.0 T pallidum Screening [place] -[id number] Reviewed date:05/23/2024 12:22:57 PM Interpretation:Negative Performing Lab:[facility] [place], [address], [address], [place], Phone - [phone], Director - [facility] Notes/Report: Clinical Information:SRC: VAGINAL T pallidum Antibodies Non Reactive Non Reactive HIV Ab/p24 Ag with Reflex-08 3935 Reviewed date:05/23/2024 12:23:03 PM Interpretation:Negative Performing Lab:[facility] [place], [address], [address], [place], Phone - [phone], Director - [facility] Notes/Report: Clinical Information:SRC: VAGINAL HIV Ab/p24 Ag Screen Non Reactive Non Reactive HIV-1/HIV-2 antibodies and HIV-1 p24 antigen were NOT detected. There is no laboratory evidence of HIV infection. HIV Negative HCV Antibody RFX to Quant PC [id number] Reviewed date:05/23/2024 12:23:15 PM Interpretation:Negative Performing Lab:[facility] [place], [address], [address], [place], Phone - [phone], Director - [facility] Notes/Report: Clinical Information:SRC: VAGINAL Clinical Information:SRC: VAGINAL HCV Ab Non Reactive Non Reactive Interpretation: Not infected with HCV unless early or acute infection is suspected (which may be delayed in an immunocompromised individual), or other evidence exists to indicate HCV infection. Ct, Ng, Trich vag by SCOT-183 160 Reviewed date:05/23/2024 06:20:54 PM Interpretation:Negative Performing Lab:[facility] [place], [address], [address], [place], Phone - [phone], Director - [facility] Notes/Report: Clinical Information:SRC: VAGINAL Chlamydia by SCOT [...] W/U Status Risk Notes Problem Menstrual disorder (475108998) Irregular menses (N92.6) Active confirmed Vital Signs Blood pressure diastolic 65 mm Hg 05/22/2024 Height 61 in 05/22/2024 Blood pressure systolic 100 mm Hg 05/22/2024 Weight 173.7 lbs 05/22/2024 BMI 32.82 kg/m2 05/22/2024 Encounters Encounter Location Date Provider Diagnosis [address] [id number] 08/24/2023 Preston Engel Encounter for surveillance of contraceptives, unspecified Z30.[address] [id number] 11/03/2023 CHAYA ADHIKARI Encounter for gynecological examination (general) (routine) without abnormal findings Z01.419 ; Routine Pap Screening Z12.4 ; Encounter for screening for infections with a predominantly sexual mode of transmission Z11.3 and Counseling/Contraceptiv e Advice Z30.[address] [place], [place] [phone] 05/22/2024 KIRTJEANE LEONARDO Encounter for screen ing for infections with a predominantly sexual mode of transmission Z11.3 ; Encounter for other general counseling and advice on contraception Z30.09 ; Acute vaginitis N76.0 ; Encounter for screening for other infectious and parasitic diseases Z11.8 ; Encounter for screening for human immunodeficiency virus [HIV] Z11.4 and Encounter for screening for other viral diseases Z11.[address] [id number] 08/17/2023 CHAYA ADHIKARI Assessments Encounter Date Diagnosis (ICD Code) Assessment Notes Treatment Notes Treatment Clinical Notes Section Notes 08/24/2023 Encounter for surveillance of contraceptives, unspecified (ICD-10 - Z30.40) Reviewed med education and what to do with missed pills Date of next annual: has been doing at [facility] previously, plans to schedule next annual at [facility] 11/03/2023 Encounter for gynecological examination (general) (routine) [...] Insured Coverage Start Date Coverage End Date [facility] [employer] [address] [address] [place], [place] [phone] [id number] Tish Alfaro Self - patient is the insured Medical (General) History Medical History History ICD Code GC ,in the past,reported ,not dx'd and t x'd at [facility] ,negative aptimas since BV ,yeast ,dx'd at [facility] on [facility] ,tx' d Surgical History Surgery Date(Month/Year)
--- OUTSIDE RECORDS SUMMARY | 2024-06-28 12:35 | XMS_ITS | Encounter Summary ---
Author Organization [employer] Address [address] [facility] [address] [place] [address] Care Team Providers Care Director Of Vocational Training Name Role Phone Juanita Albarran MD Primary Care Provider [phone] Reason for Visit * Reason Onset Date Comments Lab Orders 06/21/2024 Encounter Details Date Type Department Care Team ([facility] st Contact Info) Description 06/21/2024 Telephone [facility] [address] [place] [address] Juanita Albarran MD [address] [place] [address] Lab Orders Social History Tobacco Use Types [...] as of this encounter Miscellaneous Notes * Addendum Note - Juanita Albarran MD - 06/27/2024 9:38 AM EDTAddended by: JUANITA ALBARRAN on: 06/27/2024 09:38 AM Modules accepted: Orders * Result Encounter Note - Juanita Albarran MD - 06/22/2024 9:15 AM EDT Please inform pt of results once the Tspot is back. She is immune to Hep B due to vaccination * Telephone Encounter - Melania Ontiveros RN [...] Schedule T-SPOT??.TB Lab Routine Screening due Expected: 06/27/2024 (Approximate), Expires: 06/27/2025 documented as of this encounter Procedures Procedure Name Priority Date/Time Associated Diagnosis Comments T-SPOT(R).TB Routine 06/21/2024 2:48 PM EDT Screening due HEPATITIS B SURFACE ANTIGEN, EIA Routine 06/21/2024 2:48 PM EDT Screening due HEPATITIS B CORE AB TOTAL Routine 06/21/2024 2:48 PM EDT Screening due HEPATITIS B SURFACE ANTIBODY, QUALITATIVE Routine 06/21/2024 2:48 PM EDT Screening due documented in this encounter Results * Hepatitis B Core Antibody, Total (06/21/2024 2:48 PM EDT) Hepatitis B Core Antibody Nonreactive Nonreactive [facility] Blood Venous blood specimen / Unknown 06/21/2024 2:48 PM EDT 06/21/2024 6:08 PM EDT us Juanita Albarran MD LAB BLOOD ORDERABLES Final Re sult [facility] [address] [place], [place] [phone] * Hepatitis B surface antigen, EIA (06/21/2024 2:48 PM EDT) Hepatitis B Surface Ag Negative Negative [facility] Blood Venous blood specimen / Unknown 06/21/2024 2:48 PM EDT 06/21/2024 6:08 PM EDT Juanita Albarran MD LAB BLOOD ORDERABLES Final Re sult Performing Organization Address City/[facility]/ZIP Co de Phone Number [facility] [address] [place] [address] [phone] * Hepatitis B Surface Antibody, Qualitative (06/21/2024 2:48 PM EDT) ~Hepatitis B Surface Antibody REACTIVE Nonreactive [facility] Comment:REACTIVE: > 11.99 mI U/mL Blood Venous blood specimen / Unknown 06/21/2024 2:48 PM EDT 06/21/2024 6:08 PM EDT Juanita Albarran MD LAB BLOOD ORDERABLES Final Re sult Performing Organization Address [facility] Co de Phone Number [facility] [address] [place] [phone] * (ABNORMAL) T-SPOT??.TB (06/21/2024 2:48 PM EDT) T Spot TB Borderli ne(A) Negative [facility] Comment:The patient's test r esult cannot be definitivelyclassified as positive or negative. Retesting of thepatient is recommended although there is no setguideline established for the time interval betweenan initial borderline result and a retest.The T-SPOT.TB is a diagnostic aid. If the test resultremains borderline upon retesting, other diagnosticsand/or epidemiologic information should be used tohelp determine the Mycobacterium tuberculosis infectionstatus of the patient.The T- SPOT.TB test is qualitative and results arereported as positive, borderline, or negative, giventhat the test controls perform as expected. In linewith the Centers for Disease Control and Prevention's2010 recommendation to report quantitative measurementsalongside the qualitative result, the laboratoryprovides spot counts for informational purposes only.The T-SPOT.TB test should not be interpreted as aquantitative test. TS PANEL A 1 [facility] TS PANEL B 5 [facility] Negative Control Passed [facility] Positive Control Passed [facility] Comment:For additional infor mataaron, please refer tohttp://education.[employer]/faq/JPT080(This link is being provided for informational/educational purposes only.)REPORT COMMENT:REC'D AT [facility]YTHIS TEST WAS PERFORMED AT:[facility] [id number] [place] [address]BBWLLGOALEXANDER RODRIGUEZ MD,PHD 06/21/2024 2:48 PM EDT 06/21/2024 6:06 PM EDT us Juanita Albarran MD LAB BLOOD ORDERABLES Final Re sult [facility] [address] [place] [address] [phone] documented in this encounter Visit Diagnoses Diagnosis Screening due- Primary documented in this encounter Additional Health Concerns Assessment Noted Time PHQ-9 Depression Total Score: 3 05/27/19 25 2:31 PM EDT documented as of this encounter Care Teams Director Of Vocational Training Relationship Specialty Start Date End Date Juanita Albarran MD [address] [place] [address] PCP - General Family Medicine 10/16/20 documented as of this encounter
--- OUTSIDE RECORDS SUMMARY | 2024-06-28 12:35 | XMS_ITS | Clinical Summary ---
Author Organization [employer] Address [address] [facility] [address] [place] [address] Care Team Providers Care C++ Professor Name Role Phone Jaunita Albarran MD Primary Care Provider [phone] Allergies No known active allergies Medications 03/06 [...] Relevant Medications Amoxicillin-Clavulanate (Augmentin) 875-125 MG Tablet Bpvvrluo-Fzndgclup-Gzzeuzobvxtbro (Cortisporin) 3.5-13863-2 Otic suspension Encounters Date Type Department Care Team Description 06/28/2024 Results Follow-Up [facility] [address] [place] [address] Wing Leiva RN T-SPOT??.TB, Hepatitis B Surface Antibody, Qualitative, Hepatitis B surface antigen, EIA, Hepatitis B Core Antibody, Total 06/21/[address] [address] Juanita Albarran MD Lab Orders 06/01/[address] [address] Juanita Albarran MD Chart Prep 05/31/2024 1:00 PM EDT Office Visit [facility] [address] [place] [address] Therese Carrasco 05/26/2024 2:15 PM EDT Office Visit [address] [address] Mikael South CNP Encounter for physical examination (Primary Dx); Constipation, unspecified constipation type 05/26/2024 Travel 05/22/[address] [address] Juanita Albarran MD Chart Prep 05/01/[address] [address] Juanita Albarran MD Nurse Triage from Last 3 Months Immunizations Immunization Administration Dates Next Due DTaP, 5 pertussis [...] Additional history exists HPV Vaccines Completed 11/14/2019, 0404/2017, 07/21/2011, Additional history exists Influenza Vaccine Completed 12/03/2023, , 11/19/2022, Additional history exists Meningococcal B Vaccine Aged Out No l onger eligible based on patient's age to complete this topic Pneumococcal Vaccine: Pediatrics (0 to 5 Years) [...] Procedure Name Priority Date/Time Associated Diagnosis Comments HEPATITIS B CORE AB TOTAL Routine 06/21/2024 2:48 PM EDT Screening due HEPATITIS B SURFACE ANTIGEN, EIA Routine 06/21/2024 2:48 PM EDT Screening due HEPATITIS B SURFACE ANTIBODY, QUALITATIVE Routine 06/21/2024 2:48 PM EDT Screening due T-SPOT(R).TB Routine 06/21/2024 2:48 PM EDT Screening due 30 O RESIN-BASED COMPOSITE - 1 SURF, [...] Recently Relevant to Health Maintenance Results * (ABNORMAL) T-SPOT??.TB (06/21/2024 2:48 PM EDT) T Spot TB Borderli ne(A) Negative [facility] Comment:The patient's test r esult [...] as aquantitative test. TS PANEL A 1 [facility] TS PANEL B 5 [facility] Negative Control Passed [facility] Positive Control Passed [facility] Comment:For additional infor mataaron, please refer tohttp://education.[employer]/faq/VVC814(This link is being provided for informational/educational purposes only.)REPORT COMMENT:REC'D AT [facility] TEST WAS PERFORMED AT:[facility] [id number] [place] [address]PVMILAOALEXANDER RODRIGUEZ MD,PHD 06/21/2024 2:48 PM EDT 06/21/2024 6:06 PM EDT Result [facility] Juanita Albarran MD LAB BLOOD ORDERABLES Final Re sult [facility] [address] [place] [phone] * Hepatitis B surface antigen, EIA (06/21/2024 2:48 PM EDT) Hepatitis B Surface Ag Negative Negative [facility] Blood Venous blood specimen / Unknown 06/21/2024 2:48 PM EDT 06/21/2024 6:08 PM EDT Juanita Albarran MD LAB BLOOD ORDERABLES Final Re sult Performing Organization Address [facility]/ZIP Co de Phone Number [facility] [address] [place] [phone] * Hepatitis B Core Antibody, Total (06/21/2024 2:48 PM EDT) Hepatitis B Core Antibody Nonreactive Nonreactive [facility] Blood Venous blood specimen / Unknown 06/21/2024 2:48 PM EDT 06/21/2024 6:08 PM EDT Juanita Albarran MD LAB BLOOD ORDERABLES Final Re sult Performing Organization Address [facility] Co de Phone Number [facility] [address] [place] [phone] * Hepatitis B Surface Antibody, Qualitative (06/21/2024 2:48 PM EDT) ~Hepatitis B Surface Antibody REACTIVE Nonreactive [facility] Comment:REACTIVE: > 11.99 mI U/mL Blood Venous blood specimen / Unknown 06/21/2024 2:48 PM EDT 06/21/2024 6:08 PM EDT Juanita Albarran MD LAB BLOOD ORDERABLES Final Re sult Performing Organization Address [facility] Co de Phone Number [facility] [address] [place] [phone] from Last 3 Months Insurance [facility]ID) Care Teams C++ Professor Relationship Specialty Start Date End Date Juanita Albarran MD [address] [place] [phone] PCP - General Family Medicine 10/16/20
[2024-06-30 23:24] LABS: TS Negative Control Passed; TS Panel A 0; TS Panel B 1; TS Positive Control Passed; TSpotTB Negative (Negative)
== END 2024-06-28 11:42 | disposition home or self-care (01) ==
LOC: CF 11:41
PROVIDERS: Visit Provider Family Medicine
DX: Z13.9 Encounter for screening, unspecified (principal)
CPT/HCPCS: 36415; 86481